=== PATIENT | female | born 1945 | race Caucasian/White ===

== ENCOUNTER 2016-12-01 20:27 | Observation (INO) | payer MEDICARE, OTHER ==
[~2016-12-01] VITALS: Ht 157.5 cm; Wt 91.2 kg
[~2016-12-01 20:27] MED LIST: AMLO5TAB2 PO; ASPI-9 PO; ASPI-999 PO; ATEN25TA PO; METF1000 PO; PRAV40TA PO; PRAV80TA PO; SITA1TAB2 PO; TRIA1TAB3 PO; estrogen PO
[2016-12-01] MEDS ORDERED: ASPIRIN 81 MG CHEW (CHILDREN'S ASA) PO ONE (20:30)
[2016-12-01] MEDS ORDERED: GLIM1TAB PO (20:43)
[2016-12-01] MEDS ORDERED: CARV3.12 PO (20:43)
[2016-12-01] MEDS ORDERED: RX-NITROGLYCERIN 0.4 MG TAB BTL 25'S SL ONE (20:45)
[2016-12-01 20:54] LABS: BASOPHILS # (AUTO) 0.1 10^3/uL (0.0-0.1); BASOPHILS % (AUTO) 1 % (0-10); EOSINOPHILS # (AUTO) 0.5 10^3/uL (0.0-0.3); EOSINOPHILS % (AUTO) 7 % (0-10); LYMPHOCYTES % (AUTO) 44 % (12-44); MEAN CORPUSCULAR HEMOGLOBIN 28 PG (25-34); MEAN CORPUSCULAR HGB CONC 34 G/DL (32-36); MEAN CORPUSCULAR VOLUME 82 FL (80-99); MEAN PLATELET VOLUME 11.6 FL (7.4-10.4); MONOCYTES # (AUTO) 0.5 X 10^3 (0.0-1.0); MONOCYTES % (AUTO) 8 % (0-12); NEUTROPHILS # (AUTO) 2.8 X 10^3 (1.8-7.8); NEUTROPHILS % (AUTO) 41 % (42-75); PLATELET COUNT 206 10^3/uL (130-400); RED BLOOD COUNT 4.99 10^6/uL (4.35-5.85); RED CELL DISTRIBUTION WIDTH 14.2 % (10.0-14.5); WHITE BLOOD COUNT 6.8 10^3/uL (4.3-11.0)
--- NOTE | 2016-12-01 20:59 | ED Chest Pain ---
General Chief Complaint: Cardiac/General Problems Stated Complaint: HIGH BP, L ARM PAIN Nursing Triage Note: to ER with and grandson with reports of hypertension and left arm pain that started this evening while sitting in her chair. Patient reports recent history of new blood pressure medication due to hypertension. Nursing Sepsis Screen: No Definite Risk Source: patient, family Exam Limitations: no limitations History of Present Illness Time seen by provider: 20:30 Initial Comments Here with report of left arm ache and blood pressure is uncontrolled. She's recently had uncontrolled blood pressure. This started about 630 p.m. tonight and has not resolved. Aside from the arm aching she has no other complaints. Denies nausea, vomiting, weakness, central chest pain or diaphoresis. Does have problems with blood pressure and is recently started a new medicine on for hypertension uncontrolled. Timing/Duration: 1-3 hours Severity/Quality: mild, moderate, aching Location: other (left arm) Radiation: no radiation Activities at Onset: none Prior CP/Workup: cardiac cath Modifying Factors: improves with rest ASA po STOCKBROKER: Yes (this morning) NTG SL STOCKBROKER: No Associated Symptoms: No abdominal pain, No back pain, No dizziness, No nausea/ vomiting, No shortness of breath, No weakness Allergies and Home Medications Allergies Coded Allergies: Sulfa (Sulfonamide Antibiotics) (Verified Allergy, Unknown, 06/08/16) Home Medications Amlodipine Besylate 5 Mg Tablet 5 MG PO DAILY (Reported) Aspirin/Calcium Carbonate/Mag 325 Mg Tablet #30 325 MG PO DAILY Prescribed by: ASCENCION GOODSON on 06/09/16 0846 Carvedilol 3.125 Mg Tablet Unknown Dose PO BID (Reported) Glimepiride 1 Mg Tablet Unknown Dose PO (Reported) Metformin HCl 1,000 Mg Tablet 1,000 MG PO BID (Reported) Pravastatin Sodium 80 Mg Tablet #30 80 MG PO DAILY Prescribed by: ASCENCION GOODSON on 06/09/16 0846 Triamterene/Hydrochlorothiazid 1 Each Tablet 1 EACH PO DAILY (Reported) Review of Systems Constitutional: see HPINo chills, No fever EENTM: No Symptoms Reported Respiratory: No Symptoms ReportedDenies SOA at Rest, Denies Wheezing Cardiovascular: See HPIDenies Lightheadedness, Denies Palpitations Gastrointestinal: No Symptoms ReportedDenies Nausea, Denies Vomiting Genitourinary: No Symptoms Reported Musculoskeletal: see HPINo back pain, muscle pain Skin: no symptoms reported Psychiatric/Neurological: No Symptoms Reported All Other Systems Reviewed Negative Unless Noted: Yes Past Fxrvvhs-Gctspz-Aavolt Hx Patient Social History Alcohol Use: Denies Use Recreational Drug Use: No Smoking Status: Never a Smoker 2nd Hand Smoke Exposure: No Recent Foreign Travel: No Contact w/Someone Who Travel: No Recent Infectious Disease Expo: No Recent Hopitalizations: No Immunizations Up To Date Tetanus Booster (TDap): Unknown Date of Pneumonia Vaccine: Jul 20, 2015 Date of Influenza Vaccine: Aug 08, 2016 Seasonal Allergies Seasonal Allergies: No Surgeries HX Surgeries: Yes (Stress test and Heart cath) Respiratory Hx Respiratory Disorders: Yes Respiratory Disorders: Asthma Cardiovascular Hx Cardiac Disorders: Yes (Heart Cath ("clean")) Cardiac Disorders: High Cholesterol, Hypertension Neurological Hx Neurological Disorders: No Reproductive System Hx Reproductive Disorders: No Genitourinary Hx Genitourinary Disorders: No Gastrointestinal Hx Gastrointestinal Disorders: No Musculoskeletal Hx Musculoskeletal Disorders: No Endocrine Hx Endocrine Disorders: Yes Endocrine Disorders: Diabetes, Non-Insulin dep HEENT HX ENT Disorders: No Cancer Hx Cancer: No Psychosocial Hx Psychiatric Problems: No Integumentary HX Skin/Integumentary Disorder: No Blood Transfusions Hx Blood Disorders: No Reviewed Nursing Assessment Reviewed/Agree w Nursing PMH: Yes Family Medical History Significant Family History: No Pertinent Family Hx Family Medial History: Cerebral hemorrhage 19 FATHER Diabetes mellitus 19 MOTHER FH: breast cancer 19 MOTHER FH: ovarian cancer 19 MOTHER Hypertension 19 FATHER 19 MOTHER Physical Exam Vital Signs Vital Sign - Last 12Hours 12/01/16 20:30 Temp 98.3 Pulse 56 Resp 18 B/P 227/93 Pulse Ox 96 O2 Delivery Room Air Capillary Refill : Less Than 3 Seconds General Appearance: No Apparent Distress WD/WN HEENT: PERRL/EOMI Pharynx Normal Neck: Non Tender Supple Respiratory: Lungs Clear Normal Breath Sounds Cardiovascular: Regular Rate, Rhythm No Murmur Gastrointestinal: Non Tender Soft Extremity: Non Tender No Calf Tenderness Neurologic/Psychiatric: Alert Oriented x3 Skin: Normal Color Warm/Dry Progress/Results/Core Measures Results/Orders Lab Results Laboratory Tests Test 12/01/16 20:46 12/01/16 21:00 Range/Units Activated Partial Thromboplast Time 29 24-35 SEC Alanine Aminotransferase (ALT/SGPT) 26 0-55 U/L Albumin 3.9 3.2-4.5 G/DL Alkaline Phosphatase 81 40-136 U/L Anion Gap 10 5-14 MMOL/L Aspartate Amino Transf (AST/SGOT) 18 5-34 U/L BUN/Creatinine Ratio 25 Basophils # (Auto) 0.1 0.0-0.1 10^3/uL Basophils (%) (Auto) 1 0-10 % Blood Urea Nitrogen 21 H 7-18 MG/DL Calcium Level 9.3 8.5-10.1 MG/DL Carbon Dioxide Level 28 21-32 MMOL/L Chloride Level 100 98-107 MMOL/L Creatinine 0.83 0.60-1.30 MG/DL D-Dimer < 0.27 0.00-0.49 UG/ML Eosinophils # (Auto) 0.5 H 0.0-0.3 10^3/uL Eosinophils (%) (Auto) 7 0-10 % Estimat Glomerular Filtration Rate > 60 Glucose Level 105 70-105 MG/DL Hematocrit 41 35-52 % Hemoglobin 13.9 11.5-16.0 G/DL INR Comment 1.0 0.8-1.4 Lymphocytes # (Auto) 3.0 1.0-4.0 X 10^3 Lymphocytes (%) (Auto) 44 12-44 % Magnesium Level 2.2 1.8-2.4 MG/DL Mean Corpuscular Hemoglobin 28 25-34 PG Mean Corpuscular Hemoglobin Concent 34 32-36 G/DL Mean Corpuscular Volume 82 80-99 FL Mean Platelet Volume 11.6 H 7.4-10.4 FL Monocytes # (Auto) 0.5 0.0-1.0 X 10^3 Monocytes (%) (Auto) 8 0-12 % Myoglobin 21.1 10.0-92.0 NG/ML Neutrophils # (Auto) 2.8 1.8-7.8 X 10^3 Neutrophils (%) (Auto) 41 L 42-75 % Platelet Count 206 130-400 10^3/uL Potassium Level 3.9 3.6-5.0 MMOL/L Prothrombin Time 12.5 12.2-14.7 SEC Red Blood Count 4.99 4.35-5.85 10^6/uL Red Cell Distribution Width 14.2 10.0-14.5 % Sodium Level 138 135-145 MMOL/L Total Bilirubin 0.3 0.1-1.0 MG/DL Total Protein 6.5 6.4-8.2 G/DL Troponin I < 0.30 <0.30 NG/ML White Blood Count 6.8 4.3-11.0 10^3/uL Urine Bacteria NEGATIVE /HPF Urine Bilirubin NEGATIVE NEGATIVE Urine Casts NONE /LPF Urine Clarity CLEAR Urine Color YELLOW Urine Crystals NONE /LPF Urine Culture Indicated NO Urine Glucose (UA) NEGATIVE NEGATIVE Urine Ketones NEGATIVE NEGATIVE Urine Leukocyte Esterase NEGATIVE NEGATIVE Urine Mucus NEGATIVE /LPF Urine Nitrite NEGATIVE NEGATIVE Urine Protein NEGATIVE NEGATIVE Urine RBC NONE /HPF Urine RBC (Auto) NEGATIVE NEGATIVE Urine Renal Epithelial Cells NONE /HPF Urine Specific [place] 1.005 L 1.016-1.022 Urine Squamous Epithelial Cells 10-25 H /HPF Urine Urobilinogen NORMAL NORMAL MG/DL Urine WBC RARE /HPF Urine pH 7 5-9 My Orders Orders-STACEY WILLIS MD Cbc With Automated Diff (12/01/16 20:29) Magnesium (12/01/16 20:29) Chest 1 View, Ap/Pa Only (12/01/16 20:29) Ekg Tracing (12/01/16 20:29) Cardiac Profile 1 (12/01/16 20:29) Comprehensive Metabolic Panel (12/01/16 20:29) Myoglobin Serum (12/01/16 20:29) Protime With Inr (12/01/16 20:29) Partial Thromboplastin Time (12/01/16 20:29) O2 (12/01/16 20:29) Monitor-Rhythm Ecg Trace Only (12/01/16 20:29) Lipid Panel (12/02/16 06:00) Aspirin Chewable Tablet (Baby Aspirin Ch (12/01/16 20:30) Saline Lock/Iv-Start (12/01/16 20:29) Rx-Nitroglycerin Sl Tabs (Rx-Nitrostat S (12/01/16 20:45) Fibrin Degradation Products (12/01/16 20:46) Ua Culture If Indicated (12/01/16 21:04) Carvedilol Tablet (Coreg Tablet) (12/01/16 22:00) Lisinopril Tablet (Zestril Tablet) (12/01/16 22:00) Medications Given in ED Current Medications Medications Dose Ordered Sig/[place] Route Start Time Stop Time Status Last Admin Dose Admin Aspirin 324 mg ONCE ONCE PO 12/01/16 20:30 12/01/16 20:31 DC 12/01/16 20:48 324 MG Carvedilol 6.25 mg ONCE ONCE PO 12/01/16 22:00 12/01/16 22:01 DC 12/01/16 22:07 6.25 MG Lisinopril 10 mg ONCE ONCE PO 12/01/16 22:00 12/01/16 22:01 DC 12/01/16 22:07 10 MG Nitroglycerin 0.4 mg UD ONCE SL 12/01/16 20:45 12/01/16 20:46 DC 12/01/16 20:48 0.4 MG Vital Signs/I&O Vital Sign - Last 12Hours 12/01/16 12/01/16 12/01/16 20:30 20:33 20:48 Temp 98.3 98.3 Pulse 56 Resp 18 B/P 227/93 Pulse Ox 96 95 O2 Delivery Room Air Room Air Blood Pressure Mean: 137 Progress Note : Progress Note Seen and evaluated. IV, labs, EKG and chest x-ray ordered. ASA 324 mg by mouth given. Nitroglycerin sublingual given. She did have complete resolution of her left arm pain with the nitroglycerin. Blood pressure dropped to 155/74. 2200: I discussed the case with Dr. Goodson as patient has had labile blood pressure and has had some return of left arm aching and pain concerning for chest pain variant. We will give carvedilol 6.125 mg by mouth and lisinopril 10 mg by mouth now and admit for observation. Chest pain order set done as well. This was discussed with patient and family who agree with plan. Admit, observation status. ECG Initial ECG Impression Date: Dec 01, 2016 Initial ECG Impression Time: 20:34 Initial ECG Rhythm: Normal Sinus Comment Left anterior fascicular block with left ventricular hypertrophy. Left axis deviation. All very similar to previous of 06/08/16. No evidence of ST elevation FL. Interpreted by me. Diagnostic Imaging Diagonstic Imaging: Xray Plain Films/CT/US/NM/MRI: chest Comments NAME: [facility] REC#: [id number] PT STATUS: REG ER : 1945 PHYSICIAN: STACEY WILLIS MD ADMIT DATE: 12/01/16/ER Signed Date of Exam: 12/01/16 CHEST 1 VIEW, AP/PA ONLY INDICATION: Hypertension, arm numbness. COMPARISON: 06/08/16. EXAMINATION: Single view of the chest was obtained. FINDINGS: Clear lungs, bilaterally. The heart is slightly prominent but stable. There is no pneumothorax. IMPRESSION: No acute cardiopulmonary findings. Dictated by: Dictated on workstation # [id number] Dict: 12/01/162100 Trans: 12/01/162122 [facility] [id number] Interpreted by: MAVIS ASTORGA Electronically signed by:MAVIS ASTORGA 12/01/162124 Departure Communication Time/Spoke to Admitting Phy: 21:38 Impression Impression: Primary Impression: Hypertensive urgency Additional Impression: Chest pain Qualified Code: R07.9 - Chest pain, unspecified Disposition: ADMITTED INPATIENT Condition: Stable Decision to Admit Reason: Admit from ER (General) Decision to Admit/Date: Dec 01, 2016 Time/Decision to Admit Time: 21:38 Departure-Patient Inst. Referrals: OSCAR PACK DO (PCP) Primary Care Physician STACEY WILLIS MD Dec 01, 2016 20:59
--- NOTE | 2016-12-01 21:04 | Diagnostic Imaging Report ---
INDICATION: Hypertension, arm numbness. COMPARISON: 06/08/16. EXAMINATION: Single view of the chest was obtained. FINDINGS: Clear lungs, bilaterally. The heart is slightly prominent but stable. There is no pneumothorax. IMPRESSION: No acute cardiopulmonary findings. Dictated by: Dictated on workstation # [id number]
[2016-12-01 21:06] LABS: PROTHROMBIN TIME PATIENT 12.5 SEC (12.2-14.7)
[2016-12-01 21:07] LABS: PARTIAL THROMBOPLASTIN TIME 29 SEC (24-35)
[2016-12-01 21:13] LABS: ALANINE AMINOTRANSFERASE 26 U/L (0-55); ALBUMIN 3.9 G/DL (3.2-4.5); ANION GAP 10 MMOL/L (5-14); ASPARTATE AMINO TRANSFERASE 18 U/L (5-34); BILIRUBIN,TOTAL 0.3 MG/DL (0.1-1.0); BLOOD UREA NITROGEN 21 MG/DL (7-18); BUN/CREATININE RATIO 25; CALCIUM 9.3 MG/DL (8.5-10.1); CARBON DIOXIDE 28 MMOL/L (21-32); CHLORIDE 100 MMOL/L (98-107); CREATININE SERUM 0.83 MG/DL (0.60-1.30); GFR ESTIMATED > 60; GLUCOSE 105 MG/DL (70-105); MAGNESIUM 2.2 MG/DL (1.8-2.4); POTASSIUM 3.9 MMOL/L (3.6-5.0); SODIUM 138 MMOL/L (135-145); TOTAL PROTEIN 6.5 G/DL (6.4-8.2)
[2016-12-01 21:14] LABS: BILIRUBIN,URINE NEGATIVE (NEGATIVE); KETONES,URINE NEGATIVE (NEGATIVE); LEUKOCYTE ESTERASE ,URINE NEGATIVE (NEGATIVE); NITRITE,URINE NEGATIVE (NEGATIVE); PH,URINE 7 (5-9); PROTEIN,URINE NEGATIVE (NEGATIVE); UROBILINOGEN,URINE NORMAL (NORMAL)
[2016-12-01 21:20] LABS: MYOGLOBIN SERUM 21.1 NG/ML (10.0-92.0)
[2016-12-01 21:31] LABS: WBC,URINE RARE /HPF
[2016-12-01] MEDS ORDERED: CARVEDILOL 6.25 MG (COREG) TAB PO ONE (22:00)
[2016-12-01] MEDS ORDERED: lisINopril 10 MG (PRINIVIL) TAB PO ONE (22:00)
[2016-12-01] MEDS ORDERED: NS IV 1000 ML 1,000 ML ONE (22:55)
[2016-12-01 23:00] VITALS: BP 130/60
[2016-12-01 23:15] VITALS: BP 105/57
[2016-12-02] VITALS (8 sets, daily range): BP systolic 78–149; BP diastolic 48–66
[2016-12-02] MEDS ORDERED: NS IV 1000 ML 1,000 ML IV SCH (00:45)
[2016-12-02] MEDS ORDERED: morphine INJ 4 MG/ML 1 ML (VIAL/SYRINGE) IV PRN (00:45)
[2016-12-02] MEDS ORDERED: NITROGLYCERIN SUBLINGUAL 0.4 MG TAB (NITROSTAT) SL PRN (00:45)
[2016-12-02 04:24] LABS: BASOPHILS % (AUTO) 1 % (0-10); EOSINOPHILS # (AUTO) 0.5 10^3/uL (0.0-0.3); EOSINOPHILS % (AUTO) 7 % (0-10); LYMPHOCYTES # (AUTO) 2.6 X 10^3 (1.0-4.0); LYMPHOCYTES % (AUTO) 39 % (12-44); MEAN CORPUSCULAR HEMOGLOBIN 28 PG (25-34); MEAN CORPUSCULAR HGB CONC 34 G/DL (32-36); MEAN CORPUSCULAR VOLUME 82 FL (80-99); MEAN PLATELET VOLUME 11.8 FL (7.4-10.4); MONOCYTES # (AUTO) 0.5 X 10^3 (0.0-1.0); MONOCYTES % (AUTO) 7 % (0-12); NEUTROPHILS # (AUTO) 3.2 X 10^3 (1.8-7.8); NEUTROPHILS % (AUTO) 47 % (42-75); PLATELET COUNT 175 10^3/uL (130-400); RED BLOOD COUNT 4.53 10^6/uL (4.35-5.85); RED CELL DISTRIBUTION WIDTH 14.1 % (10.0-14.5); WHITE BLOOD COUNT 6.8 10^3/uL (4.3-11.0)
[2016-12-02 04:49] LABS: ALANINE AMINOTRANSFERASE 21 U/L (0-55); ALBUMIN 3.4 G/DL (3.2-4.5); ANION GAP 9 MMOL/L (5-14); ASPARTATE AMINO TRANSFERASE 16 U/L (5-34); BILIRUBIN,TOTAL 0.4 MG/DL (0.1-1.0); BLOOD UREA NITROGEN 19 MG/DL (7-18); BUN/CREATININE RATIO 26; CALCIUM 8.8 MG/DL (8.5-10.1); CARBON DIOXIDE 26 MMOL/L (21-32); CHLORIDE 104 MMOL/L (98-107); CREATININE SERUM 0.74 MG/DL (0.60-1.30); GFR ESTIMATED > 60; GLUCOSE 115 MG/DL (70-105); POTASSIUM 3.3 MMOL/L (3.6-5.0); SODIUM 139 MMOL/L (135-145); TOTAL PROTEIN 5.6 G/DL (6.4-8.2)
[2016-12-02 04:50] LABS: CHOLESTEROL 160 MG/DL (< 200); DIRECT LDL 111 MG/DL (1-129); TRIGLYCERIDES 95 MG/DL (<150); VLDL CHOLESTEROL 19 MG/DL (5-40)
[2016-12-02] MEDS ORDERED: CATHETER FLUSH 10 ML SYR IV PRN (08:45)
[2016-12-02] MEDS ORDERED: CARVEDILOL 6.25 MG (COREG) TAB PO SCH ×3 (09:00→21:00)
[2016-12-02] MEDS ORDERED: lisINopril 10 MG (PRINIVIL) TAB PO SCH (09:00)
[2016-12-02] MEDS ORDERED: ASPIRIN E.C. 325 MG (ECOTRIN) TABLET PO SCH (09:00)
[2016-12-02] MEDS ORDERED: PRAV40TA2 PO (09:47)
[2016-12-02] MEDS ORDERED: AMLO10TA2 PO (09:47)
[2016-12-02] MEDS ORDERED: CARV6.252 PO (09:47)
[2016-12-02] MEDS ORDERED: ASPI325T32 PO (09:47)
[2016-12-02] MEDS ORDERED: RT-ALBUINH INH (09:47)
[2016-12-02] MEDS ORDERED: FLUT9.9S NS (09:47)
[2016-12-02] MEDS ORDERED: TRIA1CAP4 PO (09:47)
--- NOTE | 2016-12-02 12:19 | History & Physical-Hospitalist ---
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 She was admitted last evening after she presented to the emergency room with a chief complaint of severe hypertension. She is a patient of Dr. Uziel Judge. She has had hypertension for some time. This seems to have been accelerated some point recently. She was given a dose of lisinopril in the emergency room last night because of hypertension. The confusion has been cleared this morning and it appears that she had not been taking her Norvasc. This has been reconciled. She now confesses that she also had a pain in her left arm on presentation to the emergency room and has been having that off and on at home combined with a pressure sensation across her anterior chest. There is a strong family history of hypertension and diabetes. Her father at age 52 of a stroke. The arm pain and chest pressure have not seemed to be related to exercise or eating. Source: patient, family Exam Limitations: no limitations Date Seen 12/02/16 Attending Physician Phoenix Goodson MD PCP Uziel Judge DO Referring Physician Date of Admission Dec 01, 2016 at 22:00 Home Medications & Allergies Home Medications Reviewed patient Home Medication Reconciliation Form Allergies Coded Allergies: Sulfa (Sulfonamide Antibiotics) (Verified Allergy, Unknown, 06/08/16) Past Rwhzkwb-Mjhzeb-Ltuqdi Hx Patient Social History Alcohol Use: Denies Use Recreational Drug Use: No Smoking Status: Never a Smoker 2nd Hand Smoke Exposure: No Physical Abuse Screen: No Sexual Abuse: No Recent Foreign Travel: No Contact w/other who traveled: No Recent Hopitalizations: No Recent Infectious Disease Expo: No Immunizations Up To Date Tetanus Booster (TDap): Unknown Date of Pneumonia Vaccine: Jul 20, 2015 Date of Influenza Vaccine: Aug 08, 2016 Seasonal Allergies Seasonal Allergies: No Surgeries HX Surgeries: Yes (Stress test and Heart cath) Respiratory Hx Respiratory Disorders: Yes Cardiovascular Hx Cardiovascular Disorders: Yes (Heart Cath ("clean")) Cardiac Disorders: High Cholesterol, Hypertension Neurological Hx Neurological Disorders: No Reproductive System Hx Reproductive Disorders: No Genitourinary Hx Genitourinary Disorders: No Gastrointestinal Hx Gastrointestinal Disorders: No Musculoskeletal Hx Musculoskeletal Disorders: No Endocrine Hx Endocrine Disorders: Yes Endocrine Disorders: Diabetes, Non-Insulin dep HEENT HX ENT Disorders: No Cancer Hx Cancer: No Psychosocial Hx Psychiatric Problems: No Integumentary HX Skin/Integumentary Disorder: No Blood Transfusions Hx Blood Disorders: No Reviewed Nursing Assessment Reviewed/Agree w Nursing PMH: Yes Family Medical History Significant Family History: No Pertinent Family Hx Family Hx: Cerebral hemorrhage 19 FATHER Diabetes mellitus 19 MOTHER FH: breast cancer 19 MOTHER FH: ovarian cancer 19 MOTHER Hypertension 19 FATHER 19 MOTHER Review of Systems Constitutional: see HPI EENTM: no symptoms reported Respiratory: no symptoms reported Cardiovascular: no symptoms reported chest pain Gastrointestinal: no symptoms reported Genitourinary: no symptoms reported : No Musculoskeletal: no symptoms reported Skin: no symptoms reported Psychiatric/Neurological: No Symptoms Reported Physical Exam Physical Exam Vital Signs Vital Sign - Last 12Hours 12/01/16 20:30 Temp 98.3 Pulse 56 Resp 18 B/P 227/93 Pulse Ox 96 O2 Delivery Room Air Capillary Refill : Less Than 3 Seconds General Appearance: Other (pleasant and alert and appears stated age) Eyes: Bilateral Eye Normal Inspection HEENT: Normal ENT Inspection Neck: Normal Inspection Respiratory: Chest Non Tender Lungs Clear Normal Breath Sounds No Accessory Muscle Use No Respiratory Distress Cardiovascular: Regular Rate, Rhythm No Edema No Gallop No JVD No Murmur Normal Peripheral Pulses Gastrointestinal: Normal Bowel Sounds No Organomegaly No Pulsatile Mass Non Tender Soft Back: Normal Inspection No CVA Tenderness No Vertebral Tenderness Extremity: Normal Capillary Refill Normal Inspection Normal Range of Motion Non Tender No Calf Tenderness No Pedal Edema Neurologic/Psychiatric: Alert Oriented x3 No Motor/Sensory Deficits Normal Mood/Affect Skin: Normal Color Lymphatic: No Adenopathy Results Results/Procedures Lab Laboratory Tests 12/01/16 20:46 12/02/16 04:12 Assessment/Plan Admission Diagnosis 1.accelerated hypertension. 2.chest pressure and left arm pain suggesting angina. 3.diabetes mellitus type II on oral agents. Assessment and Plan 1.reestablish medication program. 2.cardiology/Dr. Ruiz consultation Clinical Quality Measures AMI/AHF: ASA po Prior to arrival: Yes (this morning) DVT/VTE Risk/Contraindication: Risk Factor Score Per Nursin RFS Level Per Nursing on Admit: 3=High KELBY GRUBER MD Dec 02, 2016 12:19
--- NOTE | 2016-12-02 12:43 | Consultation-Cardiology ---
HPI-Cardiology Cardiology Consultation Date of Consultation 12/02/16 Date of Admission Indication: Chest pain HPI 71 years old lady with history of CVA, hypertension and diabetes. patient was admitted yesterday with hypertensive emergency, she was having some chest discomfort described it as dull in nature in the left side of her chest not radiating, no shortness of breath, no palpitation, syncope or near syncopal episode reported occasionally noticing irregular heartbeat on her blood pressure monitor. She reported that she forgot to take Norvasc for the last few weeks. She has been otherwise compliant with her medications. Home Medications & Allergies Allergies: Coded Allergies: Sulfa (Sulfonamide Antibiotics) (Verified Allergy, Unknown, 06/08/16) Home Medication List Reviewed: Yes TXN-Trcmpf-Zgvabi Hx Patient Social History Marital Status: Alcohol Use: Denies Use Recreational Drug Use: No Smoking Status: Never a Smoker 2nd Hand Smoke Exposure: No Recent Foreign Travel: No Recent Infectious Disease Expo: No Recent Hopitalizations: No Physical Abuse Screen: No Sexual Abuse: No Immunizations Up To Date Tetanus Booster (TDap): Unknown Date of Pneumonia Vaccine: Jul 20, 2015 Date of Influenza Vaccine: Aug 08, 2016 Past Medical History past medical history as discussed below Family Medical History Significant Family History: No Pertinent Family Hx Family History: 19 FATHER Hypertension Cerebral hemorrhage 19 MOTHER Diabetes mellitus Hypertension FH: breast cancer FH: ovarian cancer Constitutional: no symptoms reported see HPI EENTM: no symptoms reported see HPI Respiratory: no symptoms reported see HPI Cardiovascular: see HPI chest painNo edema, No Hx of Intervention, No palpitations, No syncope, No vascular heart diseas, No other Gastrointestinal: no symptoms reported see HPI Genitourinary: see HPI decreased output Musculoskeletal: no symptoms reported see HPI Skin: no symptoms reported see HPI Psychiatric/Neurological: No Symptoms Reported See HPI Reviewed Test Results Reviewed Test Results Lab Laboratory Tests Test 12/01/16 20:46 12/01/16 21:00 12/02/16 02:15 12/02/16 04:12 Range/Units Activated Partial Thromboplast Time 29 24-35 SEC Alanine Aminotransferase (ALT/SGPT) 26 21 0-55 U/L Albumin 3.9 3.4 3.2-4.5 G/DL Alkaline Phosphatase 81 67 40-136 U/L Anion Gap 10 9 5-14 MMOL/L Aspartate Amino Transf (AST/SGOT) 18 16 5-34 U/L BUN/Creatinine Ratio 25 26 Basophils # (Auto) 0.1 0.0 0.0-0.1 10^3/uL Basophils (%) (Auto) 1 1 0-10 % Blood Urea Nitrogen 21 H 19 H 7-18 MG/DL Calcium Level 9.3 8.8 8.5-10.1 MG/DL Carbon Dioxide Level 28 26 21-32 MMOL/L Chloride Level 100 104 98-107 MMOL/L Creatinine 0.83 0.74 0.60-1.30 MG/DL D-Dimer < 0.27 0.00-0.49 UG/ML Eosinophils # (Auto) 0.5 H 0.5 H 0.0-0.3 10^3/uL Eosinophils (%) (Auto) 7 7 0-10 % Estimat Glomerular Filtration Rate > 60 > 60 Glucose Level 105 115 H 70-105 MG/DL Hematocrit 41 37 35-52 % Hemoglobin 13.9 12.5 11.5-16.0 G/DL INR Comment 1.0 0.8-1.4 Lymphocytes # (Auto) 3.0 2.6 1.0-4.0 X 10^3 Lymphocytes (%) (Auto) 44 39 12-44 % Magnesium Level 2.2 1.8-2.4 MG/DL Mean Corpuscular Hemoglobin 28 28 25-34 PG Mean Corpuscular Hemoglobin Concent 34 34 32-36 G/DL Mean Corpuscular Volume 82 82 80-99 FL Mean Platelet Volume 11.6 H 11.8 H 7.4-10.4 FL Monocytes # (Auto) 0.5 0.5 0.0-1.0 X 10^3 Monocytes (%) (Auto) 8 7 0-12 % Myoglobin 21.1 10.0-92.0 NG/ML Neutrophils # (Auto) 2.8 3.2 1.8-7.8 X 10^3 Neutrophils (%) (Auto) 41 L 47 42-75 % Platelet Count 206 175 130-400 10^3/uL Potassium Level 3.9 3.3 L 3.6-5.0 MMOL/L Prothrombin Time 12.5 12.2-14.7 SEC Red Blood Count 4.99 4.53 4.35-5.85 10^6/uL Red Cell Distribution Width 14.2 14.1 10.0-14.5 % Sodium Level 138 139 135-145 MMOL/L Total Bilirubin 0.3 0.4 0.1-1.0 MG/DL Total Protein 6.5 5.6 L 6.4-8.2 G/DL Troponin I < 0.30 < 0.30 <0.30 NG/ML White Blood Count 6.8 6.8 4.3-11.0 10^3/uL Urine Bacteria NEGATIVE /HPF Urine Bilirubin NEGATIVE NEGATIVE Urine Casts NONE /LPF Urine Clarity CLEAR Urine Color YELLOW Urine Crystals NONE /LPF Urine Culture Indicated NO Urine Glucose (UA) NEGATIVE NEGATIVE Urine Ketones NEGATIVE NEGATIVE Urine Leukocyte Esterase NEGATIVE NEGATIVE Urine Mucus NEGATIVE /LPF Urine Nitrite NEGATIVE NEGATIVE Urine Protein NEGATIVE NEGATIVE Urine RBC NONE /HPF Urine RBC (Auto) NEGATIVE NEGATIVE Urine Renal Epithelial Cells NONE /HPF Urine Specific [place] 1.005 L 1.016-1.022 Urine Squamous Epithelial Cells 10-25 H /HPF Urine Urobilinogen NORMAL NORMAL MG/DL Urine WBC RARE /HPF Urine pH 7 5-9 Cholesterol Level 160 < 200 MG/DL HDL Cholesterol 40 40-60 MG/DL LDL Cholesterol Direct 111 1-129 MG/DL Triglycerides Level 95 <150 MG/DL VLDL Cholesterol 19 5-40 MG/DL Physical Exam Vital Signs Vital Sign - Last 12Hours 12/01/16 20:30 Temp 98.3 Pulse 56 Resp 18 B/P 227/93 Pulse Ox 96 O2 Delivery Room Air Capillary Refill : Less Than 3 Seconds General Appearance: No Apparent Distress WD/WN Eyes: Bilateral Eye EOMI, Bilateral Eye Normal Inspection, Bilateral Eye PERRL HEENT: PERRL/EOMI TMs Normal Normal ENT Inspection Pharynx Normal Neck: Full Range of Motion Normal Inspection Non Tender Supple Carotid Bruit Respiratory: Chest Non Tender Lungs Clear Normal Breath Sounds No Accessory Muscle Use No Respiratory Distress Cardiovascular: Regular Rate, Rhythm No Edema No Gallop No JVD No Murmur Normal Peripheral Pulses Gastrointestinal: Normal Bowel Sounds No Organomegaly No Pulsatile Mass Non Tender Soft Back: Normal Inspection No CVA Tenderness No Vertebral Tenderness Extremity: Normal Capillary Refill Normal Inspection Normal Range of Motion Non Tender No Calf Tenderness No Pedal Edema Neurologic/Psychiatric: Alert Oriented x3 No Motor/Sensory Deficits Normal Mood/Affect Skin: Normal Color Warm/Dry Lymphatic: No Adenopathy A/P-Cardiology Admission Diagnosis Chest pain nonspecific etiology Hypertensive emergency Hyperlipidemia Sick sinus syndrome Assessment/Plan Chest pain nonspecific etiology, atypical in presentation, multiple risk factors for coronary artery disease, EKG did not show any acute abnormality, cardiac enzymes are normal, currently chest pain-free, I discussed with her the management plan recommended stress test and it can be done as an outpatient. Multiple risk factors for coronary artery disease, had a stress test done in 2010 and reported as mild anterior wall ischemia probably secondary to breast attenuation. No further workup was done at that time. Hypertensive emergency. Patient was restarted on the Norvasc, has not been taken it as an outpatient, was on Coreg 3.125 twice daily which continued, added lisinopril 10 mg daily. Continue on current medication and monitor. Sick sinus syndrome, Baseline bradycardia with a heart rate in the 40s, probably exacerbated by the low-dose beta blockers. Patient is asymptomatic, I will continue on current dose and monitor closely. Hyperlipidemia, maintained on pravastatin. Continue to monitor History of CVA with slurred speech and left arm numbness, fully recovered, occurred in May 2016, carotid ultrasound showed mild disease Mild bilateral carotid stenosis nonobstructive disease, carotid ultrasound was done during her hospital stay in May 2016 Diabetes mellitus, followed and managed by primary care physician Patient reporting having sleep study done did not show underlying sleep apnea Obesity, BMI is 36, discussed weight loss and exercise Clinical Quality Measures AMI/AHF: ASA po Prior to arrival: Yes (this morning) DVT/VTE Risk/Contraindication: Risk Factor Score Per Nursin RFS Level Per Nursing on Admit: 3=High ANT FIELD MD Dec 02, 2016 12:43
[2016-12-02] MEDS ORDERED: LISI10TA2 PO (12:48)
--- NOTE | 2016-12-02 12:56 | Discharge Inst-Simple/Standard ---
Discharge Inst-Standard Patient Instructions/Follow Up Plan of Care/Instructions/FU: Medications as listed on the instruction sheet. This includes your present medications and at Dr. Ruiz's request lisinopril. Keep appointment as scheduled for Dr. Ruiz. Activity as Tolerated: Yes Goal: Improvement in blood pressure management Outpatient evaluation of cardiac status Discharge Diet: ADA Diet Return to The Hospital For: Recurrent chest pain KELBY GRUBER MD Dec 02, 2016 12:56
[2016-12-03] MEDS ORDERED: GLIMEPIRIDE 1 MG (AMARYL) TAB PO SCH ×2 (07:00)
[2016-12-03] MEDS ORDERED: amLODIPine 10 MG (NORVASC) TAB PO SCH (09:00)
[2016-12-03] MEDS ORDERED: ASPIRIN E.C. 325 MG (ECOTRIN) TABLET PO SCH ×2 (09:00)
--- NOTE | 2016-12-18 12:12 | Physician Query-Final Dx ---
KATHY SULTANA 12/18/16 1211: Final Diagnosis Give Final Diagnosis Please give Final Diagnosis KELBY GRUBER MD 12/25/16 1401: Final Diagnosis Give Final Diagnosis 1.accelerated hypertension. 2.chest pain suggesting angina pectoris. 3.diabetes mellitus type II on oral medications KATHY SULTANA Dec 18, 2016 12:11 KELBY GRUBER MD Dec 25, 2016 14:01
== END 2016-12-02 12:54 | disposition home or self-care (01) ==
LOC: EDUNIT# 20:27 → ER 20:28 → UNDOADMOB 22:00 → ICU 22:00 → UNDODISOB 12-02 14:10
PROVIDERS: ADMIT Internal Medicine; ATTEND Internal Medicine
DX: R07.89 Other chest pain (principal); I25.10 Atherosclerotic heart disease of native coronary artery without angina pectoris; I16.1 Hypertensive emergency; I10 Essential (primary) hypertension; I49.5 Sick sinus syndrome; E78.5 Hyperlipidemia, unspecified; I65.23 Occlusion and stenosis of bilateral carotid arteries; E11.9 Type 2 diabetes mellitus without complications; Z79.84 Long term (current) use of oral hypoglycemic drugs; E66.9 Obesity, unspecified; Z68.36 Body mass index [BMI] 36.0-36.9, adult
CPT/HCPCS: 36415; 71010; 80053; 80061; 81000; 83735; 83874; 84484; 85025; 85379; 85610; 85730; 93005; 93041; G0378

== ENCOUNTER → 2016-12-04 | Outpatient (CLI) | payer MEDICARE, OTHER ==
[~2016-12-04] VITALS: Ht 157.5 cm; Wt 90.7 kg
[~2016-12-04] MED LIST changes: +AMLO10TA2 PO; +ASPI325T32 PO; +CARV3.12 PO; +CARV6.252 PO; +CATHETER FLUSH 10 ML SYR IV PRN; +FLUT9.9S NS; +GLIM1TAB PO; +LIDOCAINE 1% INJ 20 ML (XYLOCAINE) VIAL ONE; +LISI10TA2 PO; +PRAV40TA2 PO; +REGADENOSON 0.4 MG/5 ML SYR (LEXISCAN) IV ONE; +RT-ALBUINH INH; +TRIA1CAP4 PO
[2016-12-04 13:32] VITALS: BP 150/98
[2016-12-04 13:38] VITALS: BP 125/96
--- NOTE | 2016-12-05 08:22 | STRESS TEST ---
PROCEDURE PHYSICIAN: ANT FIELD DATE OF PROCEDURE: 12/04/2016 LEXISCAN MYOVIEW STRESS TEST REPORT: REFERRING PHYSICIAN: Dr. Uziel Judge. INDICATION FOR THE PROCEDURE: Chest pain. BASELINE HEART RATE: 51 BASELINE BLOOD PRESSURE: 93/59 BASELINE EKG: Sinus rhythm with no ischemic changes. IN SUMMARY: The patient was injected with 10.02 mCi of technetium 99 Myoview and the resting images were obtained. Then the patient received 0.4 mg of Lexiscan followed by 32.8 mCi of technetium 99 Myoview. Throughout the test, there were no EKG changes. The resting and stress images were reviewed and compared in the short axis, horizontal long axis, and vertical long axis views. Review of the images showed breast attenuation with typical female pattern. No significant ischemia or infarction on SPECT images. SSS is 3, SDS 3, TID value 1. On the gated images, the left ventricle appeared to be normal size with normal contractility. Calculated ejection fraction 65%. IN CONCLUSION: 1. The patient tolerated Lexiscan well. 2. Breast attenuation with typical female pattern. No significant ischemia or infarction on SPECT images. 3. Normal left ventricular size with normal contractility. Calculated ejection fraction 65%. Job ID: [id number] Dictated Date: 12/04/2016 18:31:32 Immunopathologist Date: 12/05/2016 08:19:27 / kyle
== END ==
LOC: CARD 12:29
PROVIDERS: ATTEND Internal Medicine Cardiovascular Disease
DX: R07.89 Other chest pain (principal); I10 Essential (primary) hypertension; I63.9 Cerebral infarction, unspecified; R00.1 Bradycardia, unspecified
CPT/HCPCS: 78452; 93017

== ENCOUNTER → 2016-12-18 | Day surgery (SDC) | payer MEDICARE, OTHER ==
[~2016-12-18] VITALS: Ht 157.5 cm; Wt 90.7 kg
[~2016-12-18] MED LIST changes: -CATHETER FLUSH 10 ML SYR IV PRN; -LIDOCAINE 1% INJ 20 ML (XYLOCAINE) VIAL ONE; -REGADENOSON 0.4 MG/5 ML SYR (LEXISCAN) IV ONE
--- OUTSIDE RECORDS SUMMARY | 2016-12-18 08:39 | XMS REPORT | Continuity of Care Document ---
Demographics Preferred Language Unknown Marital Status Unknown Yazdanism Affiliation Unknown Race Unknown Ethnic Group Unknown Author Author [facility] Address Unknown Phone Unavailable Allergies Active Description Code Type Severity Reaction Onset Reported/Identified Relationship to Patient Clinical Status Yes No Known Drug Allergies [id number] Drug Allergy Unknown N/ A 06/08/2016 Yes Sulfa (Sulfonamide Antibiotics) [id number] Drug Allergy Unknown N/A 06/08/2016 Medications Problems Date Dx Coded Attending Type Code Diagnosis Diagnosed By 09/18/1042 OSCAR PACK DO Ot I69.918 OTHER SYMP AND SIGNS W COGN FNCTNS FOL U 04/16/2011 Ot 250.00 DIAB MADISYN WO COMPL, TYPE II OR UNSPEC TY 04/16/2011 Ot 272.4 HYPERLIPIDEMIA NEC/NOS 04/16/2011 Ot 278.00 OBESITY, NOS 04/16/2011 Ot 401.9 HYPERTENSION NOS 04/16/2011 Ot 786.50 CHEST PAIN NOS 04/16/2011 Ot 794.30 ABN CARDIOVASC STUDY NOS 04/16/2011 Ot V17.49 FAMILY HISTORY OF OTHER CARDIOVASCULAR D 04/16/2011 Ot V45.77 ACQRD ABSENCE OF GENITAL ORGANS 04/16/2011 Ot V58.69 OTH MED,LT,CURRENT USE 05/04/2015 Ot 250.00 05/04/2015 Ot 272.4 05/04/2015 Ot 401.9 05/04/2015 Ot 786.50 05/04/2015 Ot 721.3 05/25/2015 OSCAR PACK DO Ot 424.1 06/16/2015 OSCAR PACK DO Ot 424.1 04/26/2016 OSCAR PACK DO Ot Z12.31 ENCNTR SCREEN MAMMOGRAM FOR MALIGNANT NE 04/26/2016 OSCAR PACK DO Ot Z78.0 ASYMPTOMATIC MENOPAUSAL STATE 04/29/2016 OSCAR PACK DO Ot Z12.31 ENCNTR SCREEN MAMMOGRAM FOR MALIGNANT NE 04/29/2016 OSCAR PACK DO Ot Z78.0 ASYMPTOMATIC MENOPAUSAL STATE 05/30/2016 OSCAR PACK DO Ot Z12.31 ENCNTR SCREEN MAMMOGRAM FOR MALIGNANT NE 05/30/2016 OSCAR PACK DO Ot Z78.0 ASYMPTOMATIC MENOPAUSAL STATE 06/08/2016 Ot 250.00 DIAB MADISYN WO COMPL, TYPE II OR UNSPEC TY 06/08/2016 Ot 272.4 HYPERLIPIDEMIA NEC/NOS 06/08/2016 Ot 401.9 HYPERTENSION NOS 06/08/2016 Ot 786.50 CHEST PAIN NOS 06/08/2016 Ot 721.3 LUMBOSACRAL SPONDYLOSIS 06/08/2016 OSCAR PACK DO Ot 424.1 AORTIC VALVE DISORDER 06/08/2016 OSCAR PACK DO Ot Z12.31 ENCNTR SCREEN MAMMOGRAM FOR MALIGNANT NE 06/08/2016 OSCAR PACK DO Ot Z78.0 ASYMPTOMATIC MENOPAUSAL STATE 06/09/2016 KAYA MCCORD, ASCENCION Martinez Ot E11.9 TYPE 2 DIABETES MELLITUS WITHOUT COMPLIC 06/09/2016 KAYA MCCORD, ASCENCION Martinez Ot E78.5 HYPERLIPIDEMIA, UNSPECIFIED 06/09/2016 KAYA MCCORD, ASCENCION Martinez Ot I10 ESSENTIAL (PRIMARY) HYPERTENSION 06/09/2016 KAYA MCCORD, ASCENCION Martinez Ot I63.9 CEREBRAL INFARCTION, UNSPECIFIED 06/09/2016 KAYA MCCORD, ASCENCION Martinez Ot M62.81 MUSCLE WEAKNESS (GENERALIZED) 06/09/2016 KAYA MCCORD, ASCENCION Martinez Ot R20.2 PARESTHESIA OF SKIN 06/09/2016 ASCENCION KIRKPATRICK MD Ot R27.0 ATAXIA, UNSPECIFIED 06/09/2016 ASCENCION KIRKPATRICK MD Ot R29.810 FACIAL WEAKNESS 06/09/2016 KAYA MCCORD, ASCENCION Martinez Ot 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 06/13/2016 Ot 250.00 DIAB MADISYN WO COMPL, TYPE II OR UNSPEC TY 06/13/2016 Ot 272.4 HYPERLIPIDEMIA NEC/NOS 06/13/2016 Ot 401.9 HYPERTENSION NOS 06/13/2016 Ot 786.50 CHEST PAIN NOS 06/13/2016 Ot 721.3 LUMBOSACRAL SPONDYLOSIS 06/13/2016 OSCAR PACK DO Ot 424.1 AORTIC VALVE DISORDER 06/13/2016 OSCAR APCK DO Ot Z12.31 ENCNTR SCREEN MAMMOGRAM FOR MALIGNANT NE 06/13/2016 OSCAR PACK DO Ot Z78.0 ASYMPTOMATIC MENOPAUSAL STATE 07/11/2016 OSCAR PACK DO Ot Z09 ENCNTR FOR F/U EXAM AFT TRTMT FOR COND O 07/11/2016 OSCAR PACK DO Ot Z86.73 PRSNL HX OF TIA (TIA), AND CEREB INFRC W 07/19/2016 OSCAR PACK DO Ot Z09 ENCNTR FOR F/U EXAM AFT TRTMT FOR COND O 07/19/2016 OSCAR PACK DO Ot Z86.73 PRSNL HX OF TIA (TIA), AND CEREB INFRC W 08/19/2016 Ot 250.00 DIAB MADISYN WO COMPL, TYPE II OR UNSPEC TY 08/19/2016 Ot 272.4 HYPERLIPIDEMIA NEC/NOS 08/19/2016 Ot 401.9 HYPERTENSION NOS 08/19/2016 Ot 786.50 CHEST PAIN NOS 08/19/2016 Ot 721.3 LUMBOSACRAL SPONDYLOSIS 08/19/2016 OSCAR PACK DO Ot 424.1 AORTIC VALVE DISORDER 08/19/2016 OSCAR PACK DO Ot Z12.31 ENCNTR SCREEN MAMMOGRAM FOR MALIGNANT NE 08/19/2016 OSCAR PACK DO Ot Z78.0 ASYMPTOMATIC MENOPAUSAL STATE 08/19/2016 OSCAR PACK DO Ot I69.918 OTHER SYMP AND SIGNS W COGN FNCTNS FOL U 08/29/2016 OSCAR PACK DO Ot I69.918 OTHER SYMP AND SIGNS W COGN FNCTNS FOL U 09/02/2016 Ot 250.00 DIAB MADISYN WO COMPL, TYPE II OR UNSPEC TY 09/02/2016 Ot 272.4 HYPERLIPIDEMIA NEC/NOS 09/02/2016 Ot 401.9 HYPERTENSION NOS 09/02/2016 Ot 786.50 CHEST PAIN NOS 09/02/2016 Ot 721.3 LUMBOSACRAL SPONDYLOSIS 09/02/2016 OSCAR PACK DO Ot 424.1 AORTIC VALVE DISORDER 09/02/2016 OSCAR PACK DO Ot Z12.31 ENCNTR SCREEN MAMMOGRAM FOR MALIGNANT NE 09/02/2016 OSCAR PACK DO Ot Z78.0 ASYMPTOMATIC MENOPAUSAL STATE 10/30/2016 Ot 721.3 LUMBOSACRAL SPONDYLOSIS 10/30/2016 OSCAR PACK DO Ot 424.1 AORTIC VALVE DISORDER 10/30/2016 OSCAR PACK DO Ot Z12.31 ENCNTR SCREEN MAMMOGRAM FOR MALIGNANT NE 10/30/2016 OSCAR PACK DO Ot Z78.0 ASYMPTOMATIC MENOPAUSAL STATE 12/01/2016 Ot 721.3 LUMBOSACRAL SPONDYLOSIS 12/01/2016 OSCAR PACK DO Ot 424.1 AORTIC VALVE DISORDER 12/01/2016 OSCAR PACK DO Ot Z12.31 ENCNTR SCREEN MAMMOGRAM FOR MALIGNANT NE 12/01/2016 OSCAR PACK DO Ot Z78.0 ASYMPTOMATIC MENOPAUSAL STATE 12/02/2016 KAYA MCCORD, ASCENCION Martinez Ot E11.9 TYPE 2 DIABETES MELLITUS WITHOUT COMPLIC 12/02/2016 KAYA MCCORD, ASCENCION Martinez Ot E66.9 OBESITY, UNSPECIFIED 12/02/2016 ASCENCION KIRKPATRICK MD Ot E78.5 HYPERLIPIDEMIA, UNSPECIFIED 12/02/2016 ASCENCION KIRKPATRICK MD Ot I10 ESSENTIAL (PRIMARY) HYPERTENSION 12/02/2016 ASCENCION KIRKPATRICK MD Ot I16.1 HYPERTENSIVE EMERGENCY 12/02/2016 ASCENCION KIRKPATRICK MD Ot I25.10 ATHSCL HEART DISEASE OF [place] CORONARY 12/02/2016 ASCENCION KIRKPATRICK MD Ot I49.5 SICK SINUS SYNDROME 12/02/2016 ASCENCION KIRKPATRICK MD Ot I65.23 OCCLUSION AND STENOSIS OF BILATERAL [place] 12/02/2016 KAYA MCCORD, ASCENCION Martinez Ot R07.89 OTHER CHEST PAIN 12/02/2016 ASCENCION KIRKPATRICK MD Ot Z68.36 BODY MASS INDEX (BMI) 36.0-36.9, ADULT 12/02/2016 ASCENCION KIRKPATRICK MD Ot Z79.84 SHELTER (CURRENT) USE OF ORAL HYPOGLYC 12/02/2016 Ot 721.3 LUMBOSACRAL SPONDYLOSIS 12/02/2016 OSCAR PACK DO Ot 424.1 AORTIC VALVE DISORDER 12/02/2016 OSCAR PACK DO Ot Z12.31 ENCNTR SCREEN MAMMOGRAM FOR MALIGNANT NE 12/02/2016 OSCAR PACK DO Ot Z78.0 ASYMPTOMATIC MENOPAUSAL STATE 12/04/2016 Ot 721.3 LUMBOSACRAL SPONDYLOSIS 12/04/2016 OSCAR PACK DO Ot 424.1 AORTIC VALVE DISORDER 12/04/2016 OSCAR PACK DO Ot Z12.31 ENCNTR SCREEN MAMMOGRAM FOR MALIGNANT NE 12/04/2016 OSCAR PACK DO Ot Z78.0 ASYMPTOMATIC MENOPAUSAL STATE 12/04/2016 ANT FIELD MD Ot R07.89 OTHER CHEST PAIN 12/04/2016 ANT FIELD MD Ot R07.89 OTHER CHEST PAIN 12/04/2016 Ot 721.3 LUMBOSACRAL SPONDYLOSIS 12/04/2016 OSCAR PACK DO Ot 424.1 AORTIC VALVE DISORDER 12/04/2016 OSCAR PACK DO Ot Z12.31 ENCNTR SCREEN MAMMOGRAM FOR MALIGNANT NE 12/04/2016 OSCAR PACK DO Ot Z78.0 ASYMPTOMATIC MENOPAUSAL STATE 12/04/2016 ANT FIELD MD Ot R07.89 OTHER CHEST PAIN 12/04/2016 ANT FIELD MD Ot R07.89 OTHER CHEST PAIN 12/04/2016 ANT FIELD MD Ot R07.89 OTHER CHEST PAIN 12/04/2016 ANT FIELD MD Ot R07.89 OTHER CHEST PAIN 12/05/2016 ANT FIELD MD Ot I10 ESSENTIAL (PRIMARY) HYPERTENSION 12/05/2016 ANT FIELD MD Ot I63.9 CEREBRAL INFARCTION, UNSPECIFIED 12/05/2016 ANT FIELD MD Ot R00.1 BRADYCARDIA, UNSPECIFIED 12/05/2016 ANT FIELD MD Ot R07.89 OTHER CHEST PAIN 12/05/2016 ANT FIELD MD Ot I10 ESSENTIAL (PRIMARY) HYPERTENSION 12/05/2016 ANT FIELD MD Ot I63.9 CEREBRAL INFARCTION, UNSPECIFIED 12/05/2016 ANT FIELD MD Ot R00.1 BRADYCARDIA, UNSPECIFIED 12/05/2016 ANT FIELD MD Ot R07.89 OTHER CHEST PAIN 12/06/2016 Ot 721.3 LUMBOSACRAL SPONDYLOSIS 12/06/2016 OSCAR PACK DO Ot 424.1 AORTIC VALVE DISORDER 12/06/2016 OSCAR PACK DO Ot Z12.31 ENCNTR SCREEN MAMMOGRAM FOR MALIGNANT NE 12/06/2016 OSCAR PACK DO Ot Z78.0 ASYMPTOMATIC MENOPAUSAL STATE 12/06/2016 ANT FIELD MD Ot I10 ESSENTIAL (PRIMARY) HYPERTENSION 12/06/2016 ANT FIELD MD Ot I63.9 CEREBRAL INFARCTION, UNSPECIFIED 12/06/2016 RASHIDA MD, BASHAR J Ot R00.1 BRADYCARDIA, UNSPECIFIED 12/06/2016 RASHIDA MCCORD, ANT J Ot R07.89 OTHER CHEST PAIN Procedures Results Test Result Range Capillary blood glucose measurement by glucometer (mass/volume) - 06/08/16 17: 26 Capillary blood glucose measurement by glucometer (mass/volume) 81 mg/dL 70-110 Complete blood count (CBC) with automated white blood cell (WBC) differential - 06/08/16 17:29 Blood leukocytes automated count (number/volume) 7.7 10*3/ uL 4.3-11.0 Blood erythrocytes automated count (number/volume) 5.18 10*6 /uL 4.35-5.85 Venous blood hemoglobin measurement (mass/volume) 14.8 g/dL 11.5-16.0 Blood hematocrit (volume fraction) 43 % 35-52 Automated erythrocyte mean corpuscular volume 82 [foz_us] 80-99 Automated erythrocyte mean corpuscular hemoglobin (mass per erythrocyte) 29 pg 25-34 Automated erythrocyte mean corpuscular hemoglobin concentration measurement ( mass/volume) 35 g/dL 32-36 Automated erythrocyte distribution width ratio 13.4 % 10.0-14.5 Automated blood platelet count (count/volume) 211 10*3/uL 130-400 Automated blood platelet mean volume measurement 11.4 [foz_ us] 7.4-10.4 Automated blood neutrophils/100 leukocytes 50 % 42-75 Automated blood lymphocytes/100 leukocytes 38 % 12-44 Blood monocytes/100 leukocytes 7 % 0-12 Automated blood eosinophils/100 leukocytes 4 % 0-10 Automated blood basophils/100 leukocytes 1 % 0-10 Blood neutrophils automated count (number/volume) 3.8 10*3 1.8-7.8 Blood lymphocytes automated count (number/volume) 2.9 10*3 1.0-4.0 Blood monocytes automated count (number/volume) 0.5 10*3 0.0-1.0 Automated eosinophil count 0.3 10*3/uL 0.0-0.3 Automated blood basophil count (count/volume) 0.1 10*3/uL 0.0-0.1 PT panel in platelet poor plasma by coagulation assay - 06/08/16 17:29 Prothrombin time (PT) in platelet poor plasma by coagulation assay 12.3 s 12.2-14.7 INR in platelet poor plasma or blood by coagulation assay 0.9 0.8-1.4 Activated partial thromboplastin time (aPTT) in platelet poor plasma bycoagulation assay - 06/08/16 17:29 Activated partial thromboplastin time (aPTT) in platelet poor plasma bycoagulation assay 29 s 24-35 Fibrin D-dimer FEU measurement in platelet poor plasma (mass/volume) - 17:29 Fibrin D-dimer FEU measurement in platelet poor plasma (mass/volume) 0.30 ug/mL 0.00-0.49 Comprehensive metabolic panel - 06/08/16 17:29 Serum or plasma sodium measurement (moles/volume) 139 mmol/ L 135-145 Serum or plasma potassium measurement (moles/volume) 3.7 mmol/L 3.6-5.0 Serum or plasma chloride measurement (moles/volume) 103 mmol /L 98-107 Carbon dioxide 23 mmol/L 21-32 Serum or plasma anion gap determination (moles/volume) 13 mmol/L 5-14 Serum or plasma urea nitrogen measurement (mass/volume) 17 mg/dL 7-18 Serum or plasma creatinine measurement (mass/volume) 0.76 mg /dL 0.60-1.30 Serum or plasma urea nitrogen/creatinine mass ratio 22 NRG Serum or plasma creatinine measurement with calculation of estimated glomerular filtration rate > NRG Serum or plasma glucose measurement (mass/volume) 88 mg/dL 70-105 Serum or plasma calcium measurement (mass/volume) 9.7 mg/dL 8.5-10.1 Serum or plasma total bilirubin measurement (mass/volume) 0.4 mg/dL 0.1-1.0 Serum or plasma alkaline phosphatase measurement (enzymatic activity/volume) 101 U/L 40-136 Serum or plasma aspartate aminotransferase measurement (enzymatic activity/ volume) 18 U/L 5-34 Serum or plasma alanine aminotransferase measurement (enzymatic activity/volume ) 23 U/L 0-55 Serum or plasma protein measurement (mass/volume) 7.0 g/dL 6.4-8.2 Serum or plasma albumin measurement (mass/volume) 4.2 g/dL 3.2-4.5 Serum or plasma troponin i.cardiac measurement (mass/volume) - 06/08/16 17:29 Serum or plasma troponin i.cardiac measurement (mass/volume) < ng/mL <0.30 Complete urinalysis with reflex to culture - 06/08/16 17:53 Urine color determination YELLOW NRG Urine clarity determination CLEAR NRG Urine pH measurement by test strip 5 5- 9 Specific gravity of urine by test strip 1.020 1.016-1.022 Urine protein assay by test strip, semi-quantitative NEGATIVE NEGATIVE Urine glucose detection by automated test strip NEGATIVE NEGATIVE Erythrocytes detection in urine sediment by light microscopy NEGATIVE NEGATIVE Urine ketones detection by automated test strip NEGATIVE NEGATIVE Urine nitrite detection by test strip NEGATIVE NEGATIVE Urine total bilirubin detection by test strip NEGATIVE NEGATIVE Urine urobilinogen measurement by automated test strip (mass/volume) NORMAL NORMAL Urine leukocyte esterase detection by dipstick NEGATIVE NEGATIVE Automated urine sediment erythrocyte count by microscopy (number/high power field) NONE NRG Automated urine sediment leukocyte count by microscopy (number/high power field ) RARE NRG Bacteria detection in urine sediment by light microscopy TRACE NRG Squamous epithelial cells detection in urine sediment by light microscopy 5-10 NRG Crystals detection in urine sediment by light microscopy PRESENT NRG Casts detection in urine sediment by light microscopy PRESENT NRG Mucus detection in urine sediment by light microscopy MODERATE NRG Complete urinalysis with reflex to culture NO NRG Amorphous sediment detection in urine sediment by light microscopy FEW LIV URATES NRG Hyaline casts detection in urine sediment by light microscopy RARE NRG Granular casts detection in urine sediment by light microscopy RARE NRG Lipid 1996 panel - 06/09/16 03:50 Serum or plasma triglyceride measurement (mass/volume) 114 mg/dL <150 Serum or plasma cholesterol measurement (mass/volume) 179 mg /dL < 200 Serum or plasma cholesterol in HDL measurement (mass/volume) 43 mg/dL 40-60 Cholesterol in LDL [mass/volume] in serum or plasma by direct assay 120 mg/dL 1-129 Serum or plasma cholesterol in VLDL measurement (mass/volume) 23 mg/dL 5-40 Complete blood count (CBC) with automated white blood cell (WBC) differential - 12/01/16 20:46 Blood leukocytes automated count (number/volume) 6.8 10*3/ uL 4.3-11.0 Blood erythrocytes automated count (number/volume) 4.99 10*6 /uL 4.35-5.85 Venous blood hemoglobin measurement (mass/volume) 13.9 g/dL 11.5-16.0 Blood hematocrit (volume fraction) 41 % 35-52 Automated erythrocyte mean corpuscular volume 82 [foz_us] 80-99 Automated erythrocyte mean corpuscular hemoglobin (mass per erythrocyte) 28 pg 25-34 Automated erythrocyte mean corpuscular hemoglobin concentration measurement ( mass/volume) 34 g/dL 32-36 Automated erythrocyte distribution width ratio 14.2 % 10.0-14.5 Automated blood platelet count (count/volume) 206 10*3/uL 130-400 Automated blood platelet mean volume measurement 11.6 [foz_ us] 7.4-10.4 Automated blood neutrophils/100 leukocytes 41 % 42-75 Automated blood lymphocytes/100 leukocytes 44 % 12-44 Blood monocytes/100 leukocytes 8 % 0-12 Automated blood eosinophils/100 leukocytes 7 % 0-10 Automated blood basophils/100 leukocytes 1 % 0-10 Blood neutrophils automated count (number/volume) 2.8 10*3 1.8-7.8 Blood lymphocytes automated count (number/volume) 3.0 10*3 1.0-4.0 Blood monocytes automated count (number/volume) 0.5 10*3 0.0-1.0 Automated eosinophil count 0.5 10*3/uL 0.0-0.3 Automated blood basophil count (count/volume) 0.1 10*3/uL 0.0-0.1 PT panel in platelet poor plasma by coagulation assay - 12/01/16 20:46 Prothrombin time (PT) in platelet poor plasma by coagulation assay 12.5 s 12.2-14.7 INR in platelet poor plasma or blood by coagulation assay 1.0 0.8-1.4 Activated partial thromboplastin time (aPTT) in platelet poor plasma bycoagulation assay - 12/01/16 20:46 Activated partial thromboplastin time (aPTT) in platelet poor plasma bycoagulation assay 29 s 24-35 Fibrin D-dimer FEU measurement in platelet poor plasma (mass/volume) - 20:46 Fibrin D-dimer FEU measurement in platelet poor plasma (mass/volume) < ug/mL 0.00-0.49 Comprehensive metabolic panel - 12/01/16 20:46 Serum or plasma sodium measurement (moles/volume) 138 mmol/ L 135-145 Serum or plasma potassium measurement (moles/volume) 3.9 mmol/L 3.6-5.0 Serum or plasma chloride measurement (moles/volume) 100 mmol /L 98-107 Carbon dioxide 28 mmol/L 21-32 Serum or plasma anion gap determination (moles/volume) 10 mmol/L 5-14 Serum or plasma urea nitrogen measurement (mass/volume) 21 mg/dL 7-18 Serum or plasma creatinine measurement (mass/volume) 0.83 mg /dL 0.60-1.30 Serum or plasma urea nitrogen/creatinine mass ratio 25 NRG Serum or plasma creatinine measurement with calculation of estimated glomerular filtration rate > NRG Serum or plasma glucose measurement (mass/volume) 105 mg/dL 70-105 Serum or plasma calcium measurement (mass/volume) 9.3 mg/dL 8.5-10.1 Serum or plasma total bilirubin measurement (mass/volume) 0.3 mg/dL 0.1-1.0 Serum or plasma alkaline phosphatase measurement (enzymatic activity/volume) 81 U/L 40-136 Serum or plasma aspartate aminotransferase measurement (enzymatic activity/ volume) 18 U/L 5-34 Serum or plasma alanine aminotransferase measurement (enzymatic activity/volume ) 26 U/L 0-55 Serum or plasma protein measurement (mass/volume) 6.5 g/dL 6.4-8.2 Serum or plasma albumin measurement (mass/volume) 3.9 g/dL 3.2-4.5 Magnesium - 12/01/16 20:46 Magnesium 2.2 mg/dL 1.8-2.4 Serum or plasma troponin i.cardiac measurement (mass/volume) - 12/01/16 20:46 Serum or plasma troponin i.cardiac measurement (mass/volume) < ng/mL <0.30 Myoglobin, serum - 12/01/16 20:46 Myoglobin, serum 21.1 ng/mL 10.0-92.0 Complete urinalysis with reflex to culture - 12/01/16 21:00 Urine color determination YELLOW NRG Urine clarity determination CLEAR NRG Urine pH measurement by test strip 7 5- 9 Specific gravity of urine by test strip 1.005 1.016-1.022 Urine protein assay by test strip, semi-quantitative NEGATIVE NEGATIVE Urine glucose detection by automated test strip NEGATIVE NEGATIVE Erythrocytes detection in urine sediment by light microscopy NEGATIVE NEGATIVE Urine ketones detection by automated test strip NEGATIVE NEGATIVE Urine nitrite detection by test strip NEGATIVE NEGATIVE Urine total bilirubin detection by test strip NEGATIVE NEGATIVE Urine urobilinogen measurement by automated test strip (mass/volume) NORMAL NORMAL Urine leukocyte esterase detection by dipstick NEGATIVE NEGATIVE Automated urine sediment erythrocyte count by microscopy (number/high power field) NONE NRG Automated urine sediment leukocyte count by microscopy (number/high power field ) RARE NRG Bacteria detection in urine sediment by light microscopy NEGATIVE NRG Squamous epithelial cells detection in urine sediment by light microscopy 10-25 NRG Crystals detection in urine sediment by light microscopy NONE NRG Casts detection in urine sediment by light microscopy NONE NRG Mucus detection in urine sediment by light microscopy NEGATIVE NRG Complete urinalysis with reflex to culture NO NRG Renal epithelial cells detection in urine sediment by light microscopy NONE NRG Serum or plasma troponin i.cardiac measurement (mass/volume) - 12/02/16 02:15 Serum or plasma troponin i.cardiac measurement (mass/volume) < ng/mL <0.30 Complete blood count (CBC) with automated white blood cell (WBC) differential - 12/02/16 04:12 Blood leukocytes automated count (number/volume) 6.8 10*3/ uL 4.3-11.0 Blood erythrocytes automated count (number/volume) 4.53 10*6 /uL 4.35-5.85 Venous blood hemoglobin measurement (mass/volume) 12.5 g/dL 11.5-16.0 Blood hematocrit (volume fraction) 37 % 35-52 Automated erythrocyte mean corpuscular volume 82 [foz_us] 80-99 Automated erythrocyte mean corpuscular hemoglobin (mass per erythrocyte) 28 pg 25-34 Automated erythrocyte mean corpuscular hemoglobin concentration measurement ( mass/volume) 34 g/dL 32-36 Automated erythrocyte distribution width ratio 14.1 % 10.0-14.5 Automated blood platelet count (count/volume) 175 10*3/uL 130-400 Automated blood platelet mean volume measurement 11.8 [foz_ us] 7.4-10.4 Automated blood neutrophils/100 leukocytes 47 % 42-75 Automated blood lymphocytes/100 leukocytes 39 % 12-44 Blood monocytes/100 leukocytes 7 % 0-12 Automated blood eosinophils/100 leukocytes 7 % 0-10 Automated blood basophils/100 leukocytes 1 % 0-10 Blood neutrophils automated count (number/volume) 3.2 10*3 1.8-7.8 Blood lymphocytes automated count (number/volume) 2.6 10*3 1.0-4.0 Blood monocytes automated count (number/volume) 0.5 10*3 0.0-1.0 Automated eosinophil count 0.5 10*3/uL 0.0-0.3 Automated blood basophil count (count/volume) 0.0 10*3/uL 0.0-0.1 Comprehensive metabolic panel - 12/02/16 04:12 Serum or plasma sodium measurement (moles/volume) 139 mmol/ L 135-145 Serum or plasma potassium measurement (moles/volume) 3.3 mmol/L 3.6-5.0 Serum or plasma chloride measurement (moles/volume) 104 mmol /L 98-107 Carbon dioxide 26 mmol/L 21-32 Serum or plasma anion gap determination (moles/volume) 9 mmol/L 5-14 Serum or plasma urea nitrogen measurement (mass/volume) 19 mg/dL 7-18 Serum or plasma creatinine measurement (mass/volume) 0.74 mg /dL 0.60-1.30 Serum or plasma urea nitrogen/creatinine mass ratio 26 NRG Serum or plasma creatinine measurement with calculation of estimated glomerular filtration rate > NRG Serum or plasma glucose measurement (mass/volume) 115 mg/dL 70-105 Serum or plasma calcium measurement (mass/volume) 8.8 mg/dL 8.5-10.1 Serum or plasma total bilirubin measurement (mass/volume) 0.4 mg/dL 0.1-1.0 Serum or plasma alkaline phosphatase measurement (enzymatic activity/volume) 67 U/L 40-136 Serum or plasma aspartate aminotransferase measurement (enzymatic activity/ volume) 16 U/L 5-34 Serum or plasma alanine aminotransferase measurement (enzymatic activity/volume ) 21 U/L 0-55 Serum or plasma protein measurement (mass/volume) 5.6 g/dL 6.4-8.2 Serum or plasma albumin measurement (mass/volume) 3.4 g/dL 3.2-4.5 Lipid 1996 panel - 12/02/16 04:12 Serum or plasma triglyceride measurement (mass/volume) 95 mg /dL <150 Serum or plasma cholesterol measurement (mass/volume) 160 mg /dL < 200 Serum or plasma cholesterol in HDL measurement (mass/volume) 40 mg/dL 40-60 Cholesterol in LDL [mass/volume] in serum or plasma by direct assay 111 mg/dL 1-129 Serum or plasma cholesterol in VLDL measurement (mass/volume) 19 mg/dL 5-40 Encounters ACCT No. Visit Date/Time Discharge Status Pt. Type Provider Facility Loc./Unit Complaint [id number] 12/25/2012 10:56:30 RECURRING
--- OUTSIDE RECORDS SUMMARY | 2016-12-18 08:40 | XMS REPORT | Continuity of Care Document ---
Demographics Preferred Language Unknown Marital Status Unknown Nondenominational Affiliation Unknown Race Unknown Ethnic Group Unknown Author Author [facility] Address Unknown Phone Unavailable Allergies Active Description Code Type Severity Reaction Onset Reported/Identified Relationship to Patient Clinical Status Yes No Known Drug Allergies [id number] Drug Allergy Unknown N/ A 06/08/2016 Yes Sulfa (Sulfonamide Antibiotics) [id number] Drug Allergy Unknown N/A 06/08/2016 Medications Problems [...] Ot 424.1 AORTIC VALVE DISORDER 06/13/2016 OSCAR PACK DO Ot Z12.31 ENCNTR SCREEN [...] MD Ot I25.10 ATHSCL HEART DISEASE OF [place] CORONARY 12/02/2016 ASCENCION KIRKPATRICK MD Ot I49.5 SICK SINUS SYNDROME 12/02/2016 ASCENCION KIRKPATRICK MD Ot I65.23 OCCLUSION AND STENOSIS OF [place] 12/02/2016 KAYA MCCORD, ASCENCION Martinez Ot R07.89 OTHER CHEST PAIN 12/02/2016 ASCENCION KIRKPATRICK MD Ot Z68.36 BODY MASS INDEX (BMI) 36.0-36.9, ADULT 12/02/2016 ASCENCION KIRKPATRICK MD Ot Z79.84 [facility] (CURRENT) USE OF ORAL HYPOGLYC 12/02/2016 Ot 721.3 LUMBOSACRAL SPONDYLOSIS 12/02/2016 OCSAR PACK DO Ot 424.1 AORTIC VALVE DISORDER [...]
[2016-12-18 09:20] VITALS: BP 142/60
[2016-12-18 10:23] VITALS: BP 144/77
--- NOTE | 2016-12-19 11:32 | DISCHARGE SUMMARY ---
PROCEDURE PHYSICIAN: ANT FIELD REVEAL DEVICE IMPLANTATION REPORT DATE OF PROCEDURE: 12/18/2016 REFERRING PHYSICIAN: Dr. Judge BRIEF HISTORY: Mrs. Mendieta is a 71-year-old lady with a history of sick sinus syndrome, bradycardia, recurrent palpitation. She has a history of cryptogenic stroke. She was scheduled for Reveal device implantation. PROCEDURE NOTE: After explaining the procedure to the patient, all pros and cons were explained. All questions were answered. The patient signed a consent and then she was placed on the cardiac catheterization laboratory. No sedation was needed. Local anesthesia applied to small skin incision was made. Then a Reveal LINQ BalconyTVtronic with device with serial [id number] placed subcutaneously. Manual pressure and Dermabond applied. No complication noted. CONCLUSION: Successful Reveal device implantation with no complications. FINAL DIAGNOSES: 1. Sick sinus syndrome. 2. Recurrent palpitations. 3. Cryptogenic stroke Job ID: [id number] Dictated Date: 12/18/2016 10:19:21 Regulatory And Compliance Technician Date: 12/19/2016 11:29:18/suzanne
== END ==
LOC: CATH 08:35
PROVIDERS: ATTEND Internal Medicine Cardiovascular Disease
DX: I49.5 Sick sinus syndrome (principal); R00.2 Palpitations; I63.9 Cerebral infarction, unspecified; I10 Essential (primary) hypertension; I44.4 Left anterior fascicular block; Z79.899 Other long term (current) drug therapy
CPT/HCPCS: 33282

== ENCOUNTER → 2016-12-19 | Outpatient (CLI) | payer MEDICARE, OTHER ==
--- OUTSIDE RECORDS SUMMARY | 2016-12-19 11:51 | XMS REPORT | Continuity of Care Document ---
Demographics Preferred Language Unknown Marital Status Unknown Evangelical Affiliation Unknown Race Unknown Ethnic Group Unknown Author Author [facility] Address Unknown Phone Unavailable Allergies Active Description Code Type Severity Reaction Onset Reported/Identified Relationship to Patient Clinical Status Yes No Known Drug Allergies [id number] Drug Allergy Unknown N/ A 06/08/2016 Yes Sulfa (Sulfonamide Antibiotics) [id number] Drug Allergy Unknown N/A 06/08/2016 Medications Problems [...] MD Ot I25.10 ATHSCL HEART DISEASE OF [place] CORONARY 12/02/2016 ASCENCION KIRKPATRICK MD Ot I49.5 SICK SINUS SYNDROME 12/02/2016 ASCENCION KIRKPATRICK MD Ot I65.23 OCCLUSION AND STENOSIS OF [place] 12/02/2016 KAYA MCCORD, ASCENCION Martinez Ot R07.89 OTHER CHEST PAIN 12/02/2016 ASCENCION KIRKPATRICK MD Ot Z68.36 BODY MASS INDEX (BMI) 36.0-36.9, ADULT 12/02/2016 ASCENCION KIRKPATRICK MD Ot Z79.84 CUSTODIAL (CURRENT) USE OF ORAL HYPOGLYC 12/02/2016 Ot [...]
--- NOTE | 2016-12-20 06:54 | ECHOCARDIOGRAPHY REPORT ---
PROCEDURE PHYSICIAN: ANT FIELD DATE OF PROCEDURE: 12/19/2016 TWO DIMENSIONAL ECHOCARDIOGRAM REPORT PRIMARY PHYSICIAN: OTHER PHYSICIAN: REFERRING PHYSICIAN: Dr. Uziel Judge ORDERING PHYSICIAN: INDICATION FOR THE PROCEDURE: 1. CVA. 2. Hypertension. MEASUREMENTS DERIVED VALUES LV DIAMETER (LAX) NORMALS NORMALS Diastolic 4.7 (3.6-5.2) Eject. Fract. 60% (60%+/-6%) Systolic (2.3-3.9) Diastolic Vol. % Shortening (0.22-0.42) Systolic Vol. Aortic Root IVS THICKNESS Diastolic 1.1 (0.6-1.1) LVPW THICKNESS Diastolic 1.1 (0.6-1.1) LA DIAMETER Systolic 3.5 (2.1-3.7) FINDINGS: 1. Technical quality is good. 2. The left ventricle is normal in size with normal contractility. Systolic function appeared to be normal. Estimated ejection fraction 60%. 3. The left atrium is normal in size. No clot or thrombus were seen within the left atrium. 4. The right atrium and right ventricle are normal in size. No clot or thrombus were seen within the right side. 5. Mitral valve is normal in morphology with mild mitral regurgitation noted by color Doppler flow. No mitral valve prolapse. No mitral valve stenosis. 6. Aortic valve is mildly calcified. There is no significant aortic valve stenosis or regurgitation seen. 7. Tricuspid valve is normal in morphology with mild tricuspid regurgitation noted by color Doppler flow. Doppler across tricuspid valve estimated pulmonary artery pressure of 11+ right atrial pressure. 8. Pulmonic valve is functioning normally. 9. No pericardial effusion. CONCLUSION: 1. Normal left ventricular size and systolic function. Estimated ejection fraction 60%. 2. Mild mitral and tricuspid regurgitation. 3. Aortic valve sclerosis. No aortic stenosis. 4. Estimated pulmonary artery pressure of 20 mmHg. Job ID: [id number] Dictated Date: 12/19/2016 16:53:56 Manager Event Date: 12/20/2016 06:50:37 / luis armando
== END ==
LOC: CARD 11:47
PROVIDERS: ATTEND Physician Assistant
DX: I63.9 Cerebral infarction, unspecified (principal); I10 Essential (primary) hypertension; I16.1 Hypertensive emergency; I44.4 Left anterior fascicular block
CPT/HCPCS: 93306

== ENCOUNTER → 2017-01-15 | Outpatient (CLI) | payer MEDICARE, OTHER ==
--- NOTE | 2017-01-15 12:53 | Diagnostic Imaging Report ---
PROCEDURE: CT sinuses without contrast TECHNIQUE: Multiple contiguous axial images were obtained through the sinuses without the use of intravenous contrast. Coronal and sagittal reformations were then performed. INDICATION: Chronic sinusitis. COMPARISON: No prior studies are available for comparison. Correlation however is made with CT of the head from 06/08/2016. FINDINGS: The previously seen complete opacification of the right maxillary sinus has significantly improved. There is now mild mucosal thickening in both maxillary sinuses and there is a small air-fluid level in the right maxillary sinus. There is mild to moderate mucosal thickening in the ethmoid air cells worse posteriorly. There is mild mucosal thickening in the frontal sinus. Mild mucosal thickening is also seen in the sphenoidal sinuses. The ostiomeatal complex along the drainage pathway of the maxillary sinuses demonstrate mild mucosal thickening narrowing its lumen on both sides. The nasal cavity demonstrates only mild mucosal thickening along the inferior turbinates and the septum. There is nasal septal deviation to the right. There is preserved patent nasal passages. The mastoid air cells and middle ear cavities appear aerated. There is no aggressive appearing mass or evidence of bone destruction. The orbits appear symmetric. IMPRESSION: Pansinusitis. Dictated by: Dictated on workstation # [id number]
== END ==
LOC: RAD 12:26
PROVIDERS: ATTEND Otolaryngology Otolaryngology/Facial Plastic Surgery
DX: J32.9 Chronic sinusitis, unspecified (principal)
CPT/HCPCS: 70486

== ENCOUNTER → 2017-08-21 | Outpatient (CLI) | payer MEDICARE, OTHER ==
--- NOTE | 2017-08-21 13:29 | Diagnostic Imaging Report ---
PROCEDURE: US Gallbladder. TECHNIQUE: Multiple real-time grayscale images were obtained over the right upper quadrant in various projections. INDICATION: Nausea. FINDINGS: The area of the pancreas is largely obscured by bowel gas. The liver is fairly homogeneous with no focal lesion seen. The liver measures 19.6 cm craniocaudally, borderline enlarged. There is hepatopetal flow in the portal vein. No hepatic mass is identified. There is a prominent gallstone measuring 2.4 cm in size. No significant gallbladder wall thickening or pericholecystic fluid. The CBD is obscured. The right kidney is 11.7 cm in length with no hydronephrosis or focal lesion. IMPRESSION: Cholelithiasis. Borderline liver size. Dictated by: Dictated on workstation # [id number]
== END ==
LOC: RAD 09:08
PROVIDERS: ATTEND Internal Medicine
DX: R10.13 Epigastric pain (principal)
CPT/HCPCS: 76705

== ENCOUNTER 2018-04-24 20:41 | Emergency (ER) | payer MEDICARE, OTHER ==
[~2018-04-24] VITALS: Ht 154.9 cm; Wt 90.7 kg
[~2018-04-24 20:41] MED LIST changes: +ACHD5005 PO; -METF1000 PO; +METF10002 PO
[2018-04-24] MEDS ORDERED: morphine INJ 10 MG/ML 1ML (SYR OR VIAL) IV STA (20:54)
[2018-04-24 21:10] LABS: BASOPHILS # (AUTO) 0.1 10^3/uL (0.0-0.1); BASOPHILS % (AUTO) 1 % (0-10); EOSINOPHILS # (AUTO) 0.5 10^3/uL (0.0-0.3); EOSINOPHILS % (AUTO) 6 % (0-10); HEMATOCRIT 38 % (35-52); HEMOGLOBIN 12.9 G/DL (11.5-16.0); LYMPHOCYTES # (AUTO) 1.9 X 10^3 (1.0-4.0); LYMPHOCYTES % (AUTO) 25 % (12-44); MEAN CORPUSCULAR HEMOGLOBIN 28 PG (25-34); MEAN CORPUSCULAR HGB CONC 34 G/DL (32-36); MEAN CORPUSCULAR VOLUME 83 FL (80-99); MEAN PLATELET VOLUME 10.9 FL (7.4-10.4); MONOCYTES # (AUTO) 0.5 X 10^3 (0.0-1.0); MONOCYTES % (AUTO) 6 % (0-12); NEUTROPHILS # (AUTO) 4.7 X 10^3 (1.8-7.8); NEUTROPHILS % (AUTO) 61 % (42-75); PLATELET COUNT 220 10^3/uL (130-400); RED BLOOD COUNT 4.58 10^6/uL (4.35-5.85); RED CELL DISTRIBUTION WIDTH 13.7 % (10.0-14.5); WHITE BLOOD COUNT 7.7 10^3/uL (4.3-11.0)
[2018-04-24 21:22] LABS: PROTHROMBIN TIME PATIENT 12.8 SEC (12.2-14.7)
--- NOTE | 2018-04-24 21:28 | Diagnostic Imaging Report ---
INDICATION: Chest pressure PA and lateral chest obtained at 9:42 p.m. Heart and mediastinal silhouette are normal in appearance. The lungs are clear. There is no pneumothorax or pleural fluid. IMPRESSION: Negative chest. No change from 12/01/2016. Dictated by: Dictated on workstation # [id number]
[2018-04-24 21:32] LABS: ALANINE AMINOTRANSFERASE 21 U/L (0-55); ALBUMIN 4.1 GM/DL (3.2-4.5); ALKALINE PHOSPHATASE 89 U/L (40-136); BILIRUBIN,TOTAL 0.4 MG/DL (0.1-1.0); BUN/CREATININE RATIO 18; CALCIUM 9.9 MG/DL (8.5-10.1); CARBON DIOXIDE 26 MMOL/L (21-32); CHLORIDE 102 MMOL/L (98-107); CREATININE SERUM 0.77 MG/DL (0.60-1.30); GFR ESTIMATED > 60; GLUCOSE 111 MG/DL (70-105); MAGNESIUM 1.9 MG/DL (1.8-2.4); POTASSIUM 4.2 MMOL/L (3.6-5.0); SODIUM 137 MMOL/L (135-145); TOTAL PROTEIN 6.9 GM/DL (6.4-8.2)
[2018-04-24 21:39] LABS: MYOGLOBIN SERUM 31.2 NG/ML (10.0-92.0)
--- NOTE | 2018-04-24 21:59 | ED Chest Pain ---
General Chief Complaint: Chest Pain Stated Complaint: PRESSURE IN CHEST History of Present Illness Date Seen by Provider: Apr 24, 2018 Time Seen by Provider: 20:45 Initial Comments 73-year-old female presents for left-sided chest pain, she reports the pain has been present for approximately one month since having a mammogram. She has a Reveal device implanted in the left chest wall. Patient does report that she attended a earlier today and has been having some anxiety related to that. She has taken Xanax in the past for anxiety but none recently. Timing/Duration: 1-3 hours Severity/Quality: mild Location: substernal, shoulder Radiation: no radiation Activities at Onset: emotional stress Prior CP/Workup: cardiac cath, echocardiography, stress test ASA po FINISHING RANGE FEEDER: No NTG SL FINISHING RANGE FEEDER: No Associated Symptoms: denies symptoms Allergies and Home Medications Allergies Coded Allergies: Sulfa (Sulfonamide Antibiotics) (Verified Allergy, Mild, RASH, 08/28/17) Home Medications Albuterol Sulfate 8.5 Gm Hfa.aer.ad, 2 PUFF INH Q4H PRN for SHORTNESS OF BREATH, (Reported) Alprazolam 0.25 Mg Tablet, 0.25 MG PO Q8H Prescribed by: JOSIAS MOMIN on 04/24/18 4007 Amlodipine Besylate 10 Mg Tablet, 10 MG PO DAILY, (Reported) Aspirin 325 Mg Tablet.dr, 325 MG PO DAILY, (Reported) Carvedilol 6.25 Mg Tablet, 3.125 MG PO DAILY, (Reported) TAKES 1/2 (6.25MG) TABLET Fluticasone Propionate 9.9 Ml [place].susp, 2 SPRAYS NS DAILY PRN for ALLERGIES, ( Reported) Glimepiride 1 Mg Tablet, 1 MG PO DAILY, (Reported) Hydrocodone Bit/Acetaminophen 1 Each Tablet, 1 TAB PO Q6H PRN Prescribed by: MERNA DURAN on 09/04/17 1330 Lisinopril 10 Mg Tablet, 10 MG PO DAILY@0900 Prescribed by: ANT RUIZ on 12/02/16 1248 Metformin HCl 1,000 Mg Tablet, 1,000 MG PO BID, (Reported) Pravastatin Sodium 40 Mg Tablet, 40 MG PO DAILY, (Reported) Triamterene/Hydrochlorothiazid 1 Each Capsule, 1 CAP PO DAILY, (Reported) Patient Home Medication List Home Medication List Reviewed: Yes Review of Systems Constitutional: no symptoms reported, see HPI Cardiovascular: See HPI, Chest Pain Psychiatric/Neurological: See HPI, Anxiety All Other Systems Reviewed Negative Unless Noted: Yes Past Slpfsey-Cixwvq-Ufhsrt Hx Past Med/Social Hx: Reviewed Nursing Past Med/Soc Hx Patient Social History 2nd Hand Smoke Exposure: No Recent Foreign Travel: No Contact w/Someone Who Travel: No Recent Hopitalizations: No Immunizations Up To Date Tetanus Booster (TDap): Unknown Date of Pneumonia Vaccine: Jul 20, 2015 Date of Influenza Vaccine: Aug 04, 2017 Seasonal Allergies Seasonal Allergies: Yes Past Medical History Surgeries: Yes (Stress test and Heart cath) Hysterectomy Respiratory: Yes Asthma Currently Using CPAP: No Currently Using BIPAP: No Cardiac: Yes (Heart Cath ("clean")) Heart Murmur, High Cholesterol, Hypertension Neurological: No Headaches /Migraines, Stroke 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 Sexually Transmitted Disease: No HIV/AIDS: No Gastrointestinal: No Gastroesophageal Reflux, Diverticulosis, Gall Bladder Disease Musculoskeletal: No Arthritis Endocrine: Yes Diabetes, Non-Insulin dep Loss of Vision: Bilateral Hearing Impairment: Denies Cancer: No Psychosocial: No Anxiety, Depression Integumentary: No Blood Disorders: No Adverse Reaction/Blood Tranf: No (N/A) Family Medical History Cerebral hemorrhage 19 FATHER Diabetes mellitus 19 MOTHER FH: breast cancer 19 MOTHER FH: ovarian cancer 19 MOTHER Hypertension 19 FATHER 19 MOTHER No Pertinent Family Hx Physical Exam Vital Signs Vital Signs - First Documented 04/24/18 04/24/18 20:47 23:00 Temp 96.8 Pulse 58 Resp 14 B/P (MAP) 106/43 (64) Pulse Ox 99 O2 Delivery Room Air Capillary Refill : Height, Weight, BMI Height: 5', 2.00" Weight: 203lbs 1.0oz, [id number] Method:Stated ,37.1BMI General Appearance: No Apparent Distress, WD/WN HEENT: PERRL/EOMI, TMs Normal, Normal ENT Inspection, Pharynx Normal Neck: Full Range of Motion, Normal Inspection, Non Tender, Supple Respiratory: Chest Non Tender, Lungs Clear, Normal Breath Sounds Cardiovascular: Regular Rate, Rhythm, No Edema, Normal Peripheral Pulses Gastrointestinal: Normal Bowel Sounds, Non Tender, Soft Neurologic/Psychiatric: Alert, Oriented x3, Normal Mood/Affect Skin: Normal Color, Warm/Dry Progress/Results/Core Measures Results/Orders Lab Results Laboratory Tests Test 04/24/18 21:00 Range/Units White Blood Count 7.7 4.3-11.0 10^3/uL Red Blood Count 4.58 4.35-5.85 10^6/uL Hemoglobin 12.9 11.5-16.0 G/DL Hematocrit 38 35-52 % Mean Corpuscular Volume 83 80-99 FL Mean Corpuscular Hemoglobin 28 25-34 PG Mean Corpuscular Hemoglobin Concent 34 32-36 G/DL Red Cell Distribution Width 13.7 10.0-14.5 % Platelet Count 220 130-400 10^3/uL Mean Platelet Volume 10.9 H 7.4-10.4 FL Neutrophils (%) (Auto) 61 42-75 % Lymphocytes (%) (Auto) 25 12-44 % Monocytes (%) (Auto) 6 0-12 % Eosinophils (%) (Auto) 6 0-10 % Basophils (%) (Auto) 1 0-10 % Neutrophils # (Auto) 4.7 1.8-7.8 X 10^3 Lymphocytes # (Auto) 1.9 1.0-4.0 X 10^3 Monocytes # (Auto) 0.5 0.0-1.0 X 10^3 Eosinophils # (Auto) 0.5 H 0.0-0.3 10^3/uL Basophils # (Auto) 0.1 0.0-0.1 10^3/uL Prothrombin Time 12.8 12.2-14.7 SEC INR Comment 1.0 0.8-1.4 Activated Partial Thromboplast Time 29 24-35 SEC Sodium Level 137 135-145 MMOL/L Potassium Level 4.2 3.6-5.0 MMOL/L Chloride Level 102 98-107 MMOL/L Carbon Dioxide Level 26 21-32 MMOL/L Anion Gap 9 5-14 MMOL/L Blood Urea Nitrogen 14 7-18 MG/DL Creatinine 0.77 0.60-1.30 MG/DL Estimat Glomerular Filtration Rate > 60 BUN/Creatinine Ratio 18 Glucose Level 111 H 70-105 MG/DL Calcium Level 9.9 8.5-10.1 MG/DL Magnesium Level 1.9 1.8-2.4 MG/DL Total Bilirubin 0.4 0.1-1.0 MG/DL Aspartate Amino Transf (AST/SGOT) 26 5-34 U/L Alanine Aminotransferase (ALT/SGPT) 21 0-55 U/L Alkaline Phosphatase 89 40-136 U/L Myoglobin 31.2 10.0-92.0 NG/ML Troponin I < 0.30 <0.30 NG/ML Total Protein 6.9 6.4-8.2 GM/DL Albumin 4.1 3.2-4.5 GM/DL My Orders Orders - JOSIAS MOMIN CRA Cbc With Automated Diff (04/24/18 20:54) Magnesium (04/24/18 20:54) Ekg Tracing (04/24/18 20:54) Cardiac Profile 1 (04/24/18 20:54) Comprehensive Metabolic Panel (04/24/18 20:54) Myoglobin Serum (04/24/18 20:54) Protime With Inr (04/24/18 20:54) Partial Thromboplastin Time (04/24/18 20:54) O2 (04/24/18 20:54) Monitor-Rhythm Ecg Trace Only (04/24/18 20:54) Morphine Injection (Morphine Injection (04/24/18 20:54) Saline Lock/Iv-Start (04/24/18 20:54) Chest Pa/Lat (2 View) (04/24/18 20:54) Alprazolam Tablet (Xanax Tablet) (04/24/18 23:00) Medications Given in ED Current Medications Medications Dose Ordered Sig/[place] Route Start Time Stop Time Status Last Admin Dose Admin Alprazolam 0.25 mg STK-MED ONCE .ROUTE 04/24/18 23:00 04/24/18 23:01 DC 04/24/18 23:03 0.25 MG Vital Signs/I&O 04/24/18 04/24/18 04/24/18 20:47 20:47 23:00 Temp 96.8 96.8 Pulse 58 58 Resp 14 14 B/P (MAP) 106/43 (64) 141/50 (64) Pulse Ox 99 O2 Delivery Room Air Room Air Room Air Progress Progress Note : Time: 20:45 Progress Note Initial evaluation completed, will start chest pain workup and reevaluate. 2100 initial EKG within normal limits and unchanged from previous. 2130 patient does report relief of her chest pain. Will continue to monitor. 2200 all labs within normal limits. Discussed with patient and she feels much better at this time. 2230 Xanax 0.25 mg orally for anxiety. 2240 discharge instructions and return precautions reviewed with the patient and her spouse in detail, all questions answered. Initial ECG Impression Date: Apr 24, 2018 Initial ECG Impression Time: 20:50 Initial ECG Rate: 56 Initial ECG Rhythm: Normal Sinus Initial ECG Intervals: Normal Initial ECG Intervals MS 196, QRS D1 10, QT 468, QTC 452. [place] P 11, QRS -40 T 19 Initial ECG Impression: Normal Initial ECG Comparisson: Unchanged Comment Reviewed with Dr. Jacobsen, concurred with interpretation. Diagnostic Imaging Diagonstic Imaging: Xray Plain Films/CT/US/NM/MRI: chest Comments NAME: [facility] REC#: [id number] PT STATUS: REG ER : 1945 PHYSICIAN: JOSIAS MOMIN ADMIT DATE: 04/24/18/ER Draft Date of Exam:04/24/18 CHEST PA/LAT (2 VIEW) INDICATION: Chest pressure PA and lateral chest obtained at 9:42 p.m. Heart and mediastinal silhouette are normal in appearance. The lungs are clear. There is no pneumothorax or pleural fluid. IMPRESSION: Negative chest. No change from 12/01/2016. Dictated on workstation # [id number] Dict: 04/24/182123 Trans: 04/24/182127 TRISTEN [id number] Interpreted by: GABBI VELASCO MD Electronically signed by: Reviewed: Reviewed by Me (implant noted in left chest wall, and palpable with history of Reveal implant on 12/18/[address] Ruiz.) Departure Impression Primary Impression: Chest wall pain Disposition: HOME, SELF-CARE Condition: Stable Departure-Patient Inst. Decision time for Depature: 22:40 Referrals: OSCAR PACK DO (PCP/Family) Primary Care Physician Patient Instructions: Chest Pain That Is Not Caused by the Heart (DC) Add. Discharge Instructions: Continue to take your home medication as instructed. You may take ibuprofen 600 mg every 8 hours for pain. Continue taking your aspirin daily. Follow-up with your primary care provider if symptoms are not improving or worsen. Return to emergency department immediately for chest pain associated with sweating, nausea or vomiting, or weakness. Call Dr. Ruiz's office for follow-up on Friday. All discharge instructions reviewed with patient and/or family. Voiced understanding. Scripts Alprazolam (Xanax) 0.25 Mg Tablet 0.25 MG PO Q8H, #12 TAB 0 Refills Prov: JOSIAS MOMIN 04/24/18 Copy Copies To 1: OSCAR PACK DO Copies To 2: ANT RUIZ MD, AMY ARNP Apr 24, 2018 21:59
[2018-04-24] MEDS ORDERED: ALPR0.25 PO (22:57)
[2018-04-24 23:00] VITALS: BP 141/50
[2018-04-24] MEDS ORDERED: ALPRAZolam 0.25 MG (XANAX) TAB ONE (23:00)
== END 2018-04-24 23:03 | disposition home or self-care (01) ==
LOC: EDUNIT# 20:41 → ER 20:43
DX: R07.89 Other chest pain (principal); J45.909 Unspecified asthma, uncomplicated; E78.00 Pure hypercholesterolemia, unspecified; I10 Essential (primary) hypertension; G43.909 Migraine, unspecified, not intractable, without status migrainosus; K21.9 Gastro-esophageal reflux disease without esophagitis; E11.9 Type 2 diabetes mellitus without complications; F41.9 Anxiety disorder, unspecified; F32.9 Major depressive disorder, single episode, unspecified; Z80.3 Family history of malignant neoplasm of breast; Z80.41 Family history of malignant neoplasm of ovary; Z87.19 Personal history of other diseases of the digestive system; Z86.73 Personal history of transient ischemic attack (TIA), and cerebral infarction without residual deficits; Z88.2 Allergy status to sulfonamides; Z79.82 Long term (current) use of aspirin; Z79.51 Long term (current) use of inhaled steroids; Z79.84 Long term (current) use of oral hypoglycemic drugs; Z90.710 Acquired absence of both cervix and uterus
CPT/HCPCS: 36415; 71046; 80053; 83735; 83874; 84484; 85025; 85610; 85730; 93005; 93041

== ENCOUNTER 2019-05-14 13:11 | Emergency (ER) | payer MEDICARE, OTHER ==
[~2019-05-14] VITALS: Ht 157.5 cm; Wt 89.4 kg
[~2019-05-14 13:11] MED LIST changes: +ALPR0.25 PO; -AMLO10TA2 PO; +AMLO10TA7 PO; -AMLO5TAB2 PO; +AMLO5TAB9 PO; +METF-399 PO; -METF10002 PO
--- OUTSIDE RECORDS SUMMARY | 2019-05-14 13:21 | XMS REPORT | Continuity of Care Document ---
Demographics Preferred Language Unknown Marital Status Unknown Caodaism Affiliation Unknown Race Unknown Ethnic Group Unknown Author Organization Unknown Address Unknown Allergies Active Description Code Type Severity Reaction Onset Reported/Identified Relationship to Patient Clinical Status Yes No Known Drug Allergies [id number] Drug Allergy Unknown N/A 06/08/2016 Yes Sulfa (Sulfonamide Antibiotics) [id number] Drug Allergy Unknown N/A 06/08/2016 Yes Sulfa (Sulfonamide Antibiotics) [id number] Drug Allergy Mild RASH 08/28/2017 Medications There is no data. Problems Date Dx Coded Attending Type Code [...] SCREEN MAMMOGRAM FOR MALIGNANT NE 05/30/2016 OSCAR PCAK DO Ot Z78.0 ASYMPTOMATIC MENOPAUSAL STATE 06/08/2016 [...] TYPE 2 DIABETES MELLITUS WITHOUT COMPLIC 06/09/2016 ASCENCION KIRKPATRICK MD Ot E78.5 HYPERLIPIDEMIA, UNSPECIFIED 06/09/2016 ASCENCION KIRKPATRICK MD Ot I10 ESSENTIAL (PRIMARY) HYPERTENSION 06/09/2016 ASCENCION KIRKPATRICK MD Ot I63.9 CEREBRAL INFARCTION, UNSPECIFIED 06/09/2016 ASCENCION KIRKPATRICK MD Ot M62.81 MUSCLE WEAKNESS (GENERALIZED) 06/09/2016 ASCENCION KIRKPATRICK MD Ot R20.2 PARESTHESIA OF SKIN 06/09/2016 ASCENCION KIRKPATRICK MD Ot R27.0 ATAXIA, UNSPECIFIED 06/09/2016 ASCENCION KIRKPATRICK MD Ot R29.810 FACIAL WEAKNESS 06/09/2016 ASCENCION KIRKPATRICK MD Ot 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 06/13/2016 Ot [...] DO Ot Z78.0 ASYMPTOMATIC MENOPAUSAL STATE 07/11/2016 OSCRA PACK DO Ot Z09 ENCNTR FOR F/U [...] 424.1 AORTIC VALVE DISORDER 10/30/2016 OSCAR PACK DO, Ot Z12.31 ENCNTR SCREEN MAMMOGRAM FOR MALIGNANT NE 10/30/2016 OSCAR PACK DO Ot Z78.0 ASYMPTOMATIC MENOPAUSAL STATE 12/01/2016 Ot 721.3 LUMBOSACRAL SPONDYLOSIS 12/01/2016 OSCAR PACK DO Ot 424.1 AORTIC VALVE DISORDER 12/01/2016 OSCAR PACK DO Ot Z12.31 ENCNTR SCREEN MAMMOGRAM FOR MALIGNANT NE 12/01/2016 OSCAR PACK DO Ot Z78.0 ASYMPTOMATIC MENOPAUSAL STATE 12/02/2016 ASCENCION KIRKPATRICK MD Ot E11.9 TYPE 2 DIABETES MELLITUS WITHOUT COMPLIC 12/02/2016 ASCENCION KIRKPATRICK MD Ot E66.9 OBESITY, UNSPECIFIED 12/02/2016 ASCENCION KIRKPATRICK MD Ot E78.5 HYPERLIPIDEMIA, UNSPECIFIED 12/02/2016 ASCENCION KIRKPATRICK MD Ot I10 ESSENTIAL (PRIMARY) HYPERTENSION 12/02/2016 ASCENCION KIRKPATRICK MD Ot I16.1 HYPERTENSIVE EMERGENCY 12/02/2016 ASCENCION KIRKPATRICK MD Ot I25.10 ATHSCL HEART DISEASE OF [place] CORONARY 12/02/2016 ASCENCION KIRKPATRICK MD Ot I49.5 SICK SINUS SYNDROME 12/02/2016 ASCENCION KIRKPATRICK MD Ot I65.23 OCCLUSION AND STENOSIS OF BILATERAL [place] 12/02/2016 ASCENCION KIRKPATRICK MD Ot R07.89 OTHER CHEST PAIN 12/02/2016 ASCENCION KIRKPATRICK MD Ot Z68.36 BODY MASS INDEX (BMI) 36.0-36.9, ADULT 12/02/2016 ASCENCION KIRKPATRICK MD Ot Z79.84 INTERMEDIATE (CURRENT) USE OF ORAL HYPOGLYC 12/02/2016 Ot [...] Ot I63.9 CEREBRAL INFARCTION, UNSPECIFIED 12/06/2016 RASHIDA MCCORD, ANT Rider Ot R00.1 BRADYCARDIA, UNSPECIFIED 12/06/2016 ANT FIELD MD Ot R07.89 OTHER CHEST PAIN 12/18/2016 Ot 721.3 LUMBOSACRAL SPONDYLOSIS 12/18/2016 OSCAR PACK DO Ot 424.1 AORTIC VALVE DISORDER 12/18/2016 OSCAR PACK DO Ot Z12.31 ENCNTR SCREEN MAMMOGRAM FOR MALIGNANT NE 12/18/2016 OSCAR PACK DO Ot Z78.0 ASYMPTOMATIC MENOPAUSAL STATE 12/18/2016 ANT FIELD MD Ot I10 ESSENTIAL (PRIMARY) HYPERTENSION 12/18/2016 ANT FIELD MD Ot I63.9 CEREBRAL INFARCTION, UNSPECIFIED 12/18/2016 ANT FIELD MD Ot R00.1 BRADYCARDIA, UNSPECIFIED 12/18/2016 ANT FIELD MD Ot R07.89 OTHER CHEST PAIN 12/22/2016 IAIN JONES Ot I10 ESSENTIAL (PRIMARY) HYPERTENSION 12/22/2016 IAIN JONES Ot I16.1 HYPERTENSIVE EMERGENCY 12/22/2016 IAIN JONES Ot 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 12/22/2016 IAIN JONES Ot I63.9 CEREBRAL INFARCTION, UNSPECIFIED 01/09/2017 ANT FIELD MD Ot I10 ESSENTIAL (PRIMARY) HYPERTENSION 01/09/2017 ANT FIELD MD Ot 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 01/09/2017 ANT FIELD MD Ot I49.5 SICK SINUS SYNDROME 01/09/2017 ANT FIELD MD Ot I63.9 CEREBRAL INFARCTION, UNSPECIFIED 01/09/2017 ANT FIELD MD Ot R00.2 PALPITATIONS 01/09/2017 ANT FIELD MD Ot Z79.899 OTHER TENNIS PLAYER (CURRENT) DRUG THERAPY 01/09/2017 IAIN JONES Ot I10 ESSENTIAL (PRIMARY) HYPERTENSION 01/09/2017 IAIN JONES Ot I16.1 HYPERTENSIVE EMERGENCY 01/09/2017 IAIN JONES Ot 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 01/09/2017 IAIN JONES Ot I63.9 CEREBRAL INFARCTION, UNSPECIFIED 01/15/2017 EDY BLOUNT MD Ot J32.9 CHRONIC SINUSITIS, UNSPECIFIED 01/15/2017 ANT FIELD MD Ot I10 ESSENTIAL (PRIMARY) HYPERTENSION 01/15/2017 ANT FIELD MD Ot I63.9 CEREBRAL INFARCTION, UNSPECIFIED 01/15/2017 ANT FIELD MD Ot R00.1 BRADYCARDIA, UNSPECIFIED 01/15/2017 ANT FIELD MD Ot R07.89 OTHER CHEST PAIN 01/16/2017 EDY BLOUNT MD Ot J32.9 CHRONIC SINUSITIS, UNSPECIFIED 01/29/2017 ANT FIELD MD Ot I10 ESSENTIAL (PRIMARY) HYPERTENSION 01/29/2017 ANT FIELD MD Ot 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 01/29/2017 ANT FIELD MD Ot I49.5 SICK SINUS SYNDROME 01/29/2017 ANT FIELD MD Ot I63.9 CEREBRAL INFARCTION, UNSPECIFIED 01/29/2017 ANT FIELD MD Ot R00.2 PALPITATIONS 01/29/2017 ANT FIELD MD Ot Z79.899 OTHER INTERMEDIATE (CURRENT) DRUG THERAPY 01/30/2017 IAIN JONES Ot I10 ESSENTIAL (PRIMARY) HYPERTENSION 01/30/2017 IAIN JONES Ot I16.1 HYPERTENSIVE EMERGENCY 01/30/2017 IAIN JONES Ot 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 01/30/2017 IAIN JONES Ot I63.9 CEREBRAL INFARCTION, UNSPECIFIED 02/06/2017 EDY BLOUNT MD Ot J32.9 CHRONIC SINUSITIS, UNSPECIFIED 04/09/2017 ANT FIELD MD Ot I10 ESSENTIAL (PRIMARY) HYPERTENSION 04/09/2017 ANT FIELD MD Ot 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 04/09/2017 ANT FIELD MD Ot I49.5 SICK SINUS SYNDROME 04/09/2017 ANT FIELD MD Ot I63.9 CEREBRAL INFARCTION, UNSPECIFIED 04/09/2017 ANT FIELD MD Ot R00.2 PALPITATIONS 04/09/2017 ANT FIELD MD Ot Z79.899 OTHER INTERMEDIATE (CURRENT) DRUG THERAPY 04/10/2017 EDY BLOUNT MD Ot J32.9 CHRONIC SINUSITIS, UNSPECIFIED 06/12/2017 OSCAR PACK DO Ot 424.1 AORTIC VALVE DISORDER 06/12/2017 OSCAR PACK DO Ot Z12.31 ENCNTR SCREEN MAMMOGRAM FOR MALIGNANT NE 06/12/2017 OSCAR PACK DO Ot Z78.0 ASYMPTOMATIC MENOPAUSAL STATE 06/12/2017 ANT FIELD MD Ot I10 ESSENTIAL (PRIMARY) HYPERTENSION 06/12/2017 ANT FIELD MD Ot I63.9 CEREBRAL INFARCTION, UNSPECIFIED 06/12/2017 ANT FIELD MD Ot R00.1 BRADYCARDIA, UNSPECIFIED 06/12/2017 ANT FIELD MD Ot R07.89 OTHER CHEST PAIN 06/12/2017 ANT FIELD MD Ot I10 ESSENTIAL (PRIMARY) HYPERTENSION 06/12/2017 ANT FIELD MD Ot 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 06/12/2017 ANT FIELD MD Ot I49.5 SICK SINUS SYNDROME 06/12/2017 ANT FIELD MD Ot I63.9 CEREBRAL INFARCTION, UNSPECIFIED 06/12/2017 ANT FIELD MD Ot R00.2 PALPITATIONS 06/12/2017 ANT FIELD MD Ot Z79.899 OTHER INTERMEDIATE (CURRENT) DRUG THERAPY 06/12/2017 IAIN JONES Ot I10 ESSENTIAL (PRIMARY) HYPERTENSION 06/12/2017 IAIN JONES Ot I16.1 HYPERTENSIVE EMERGENCY 06/12/2017 IAIN JONES Ot 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 06/12/2017 IAIN JONES Ot I63.9 CEREBRAL INFARCTION, UNSPECIFIED 06/12/2017 EDY BLOUNT MD Ot J32.9 CHRONIC SINUSITIS, UNSPECIFIED 07/02/2017 OSCAR PACK DO Ot 424.1 AORTIC VALVE DISORDER 07/02/2017 OSCAR PACK DO Ot Z12.31 ENCNTR SCREEN MAMMOGRAM FOR MALIGNANT NE 07/02/2017 OSCAR PACK DO Ot Z78.0 ASYMPTOMATIC MENOPAUSAL STATE 07/02/2017 ANT FIELD MD Ot I10 ESSENTIAL (PRIMARY) HYPERTENSION 07/02/2017 ANT FIELD MD Ot I63.9 CEREBRAL INFARCTION, UNSPECIFIED 07/02/2017 ANT FIELD MD Ot R00.1 BRADYCARDIA, UNSPECIFIED 07/02/2017 ANT FIELD MD Ot R07.89 OTHER CHEST PAIN 07/02/2017 ANT FIELD MD Ot I10 ESSENTIAL (PRIMARY) HYPERTENSION 07/02/2017 ANT FIELD MD Ot 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 07/02/2017 ANT FIELD MD Ot I49.5 SICK SINUS SYNDROME 07/02/2017 ANT FIELD MD Ot I63.9 CEREBRAL INFARCTION, UNSPECIFIED 07/02/2017 ANT FIELD MD Ot R00.2 PALPITATIONS 07/02/2017 ANT FIELD MD Ot Z79.899 OTHER TENNIS PLAYER (CURRENT) DRUG THERAPY 07/02/2017 AIIN JONES Ot I10 ESSENTIAL (PRIMARY) HYPERTENSION 07/02/2017 IAIN JONES Ot I16.1 HYPERTENSIVE EMERGENCY 07/02/2017 IAIN JONES Ot 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 07/02/2017 IAIN JONES Ot I63.9 CEREBRAL INFARCTION, UNSPECIFIED 07/02/2017 JOSE ALEJANDRO MCCORD, EDY Florez Ot J32.9 CHRONIC SINUSITIS, UNSPECIFIED 07/03/2017 OSCAR PACK DO Ot 424.1 AORTIC VALVE DISORDER 07/03/2017 OSCAR PACK DO Ot Z12.31 ENCNTR SCREEN MAMMOGRAM FOR MALIGNANT NE 07/03/2017 OSCAR PACK DO Ot Z78.0 ASYMPTOMATIC MENOPAUSAL STATE 07/03/2017 ANT FIELD MD Ot I10 ESSENTIAL (PRIMARY) HYPERTENSION 07/03/2017 ANT FIELD MD Ot I63.9 CEREBRAL INFARCTION, UNSPECIFIED 07/03/2017 ANT FIELD MD Ot R00.1 BRADYCARDIA, UNSPECIFIED 07/03/2017 ANT FIELD MD Ot R07.89 OTHER CHEST PAIN 07/03/2017 ANT FIELD MD Ot I10 ESSENTIAL (PRIMARY) HYPERTENSION 07/03/2017 ANT FIELD MD Ot 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 07/03/2017 ANT FIELD MD Ot I49.5 SICK SINUS SYNDROME 07/03/2017 ANT FIELD MD Ot I63.9 CEREBRAL INFARCTION, UNSPECIFIED 07/03/2017 ANT FIELD MD Ot R00.2 PALPITATIONS 07/03/2017 ANT FIELD MD Ot Z79.899 OTHER TENNIS PLAYER (CURRENT) DRUG THERAPY 07/03/2017 IAIN JONES Ot I10 ESSENTIAL (PRIMARY) HYPERTENSION 07/03/2017 IAIN JONES Ot I16.1 HYPERTENSIVE EMERGENCY 07/03/2017 IAIN JONES Ot 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 07/03/2017 IAIN JONES Ot I63.9 CEREBRAL INFARCTION, UNSPECIFIED 07/03/2017 EDY BLOUNT MD Ot J32.9 CHRONIC SINUSITIS, UNSPECIFIED 08/21/2017 OSCAR PACK DO Ot 424.1 AORTIC VALVE DISORDER 08/21/2017 OSCAR PACK DO Ot Z12.31 ENCNTR SCREEN MAMMOGRAM FOR MALIGNANT NE 08/21/2017 OSCAR PACK DO Ot Z78.0 ASYMPTOMATIC MENOPAUSAL STATE 08/21/2017 ANT FIELD MD Ot I10 ESSENTIAL (PRIMARY) HYPERTENSION 08/21/2017 ANT FIELD MD Ot I63.9 CEREBRAL INFARCTION, UNSPECIFIED 08/21/2017 ANT FIELD MD Ot R00.1 BRADYCARDIA, UNSPECIFIED 08/21/2017 ANT FIELD MD Ot R07.89 OTHER CHEST PAIN 08/21/2017 ANT FIELD MD Ot I10 ESSENTIAL (PRIMARY) HYPERTENSION 08/21/2017 ANT FIELD MD Ot 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 08/21/2017 ANT FIELD MD Ot I49.5 SICK SINUS SYNDROME 08/21/2017 ANT FIELD MD Ot I63.9 CEREBRAL INFARCTION, UNSPECIFIED 08/21/2017 ANT FIELD MD Ot R00.2 PALPITATIONS 08/21/2017 ANT FIELD MD Ot Z79.899 OTHER INTERMEDIATE (CURRENT) DRUG THERAPY 08/21/2017 IAIN JONES Ot I10 ESSENTIAL (PRIMARY) HYPERTENSION 08/21/2017 IAIN JONES Ot I16.1 HYPERTENSIVE EMERGENCY 08/21/2017 IAIN JONES Ot 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 08/21/2017 IAIN JONES Ot I63.9 CEREBRAL INFARCTION, UNSPECIFIED 08/21/2017 JOSE ALEJANDRO MCCORD, EDY Florez Ot J32.9 CHRONIC SINUSITIS, UNSPECIFIED 08/24/2017 OSCAR PACK DO Ot 424.1 AORTIC VALVE DISORDER 08/24/2017 OSCAR PACK DO Ot Z12.31 ENCNTR SCREEN MAMMOGRAM FOR MALIGNANT NE 08/24/2017 OSCAR PACK DO Ot Z78.0 ASYMPTOMATIC MENOPAUSAL STATE 08/24/2017 ANT FIELD MD Ot I10 ESSENTIAL (PRIMARY) HYPERTENSION 08/24/2017 ANT FIELD MD Ot I63.9 CEREBRAL INFARCTION, UNSPECIFIED 08/24/2017 ANT FEILD MD Ot R00.1 BRADYCARDIA, UNSPECIFIED 08/24/2017 ANT FIELD MD Ot R07.89 OTHER CHEST PAIN 08/24/2017 ANT FIELD MD Ot I10 ESSENTIAL (PRIMARY) HYPERTENSION 08/24/2017 ANT FIELD MD Ot 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 08/24/2017 ANT FIELD MD Ot I49.5 SICK SINUS SYNDROME 08/24/2017 ANT FIELD MD Ot I63.9 CEREBRAL INFARCTION, UNSPECIFIED 08/24/2017 ANT FIELD MD Ot R00.2 PALPITATIONS 08/24/2017 ANT FIELD MD Ot Z79.899 OTHER INTERMEDIATE (CURRENT) DRUG THERAPY 08/24/2017 IAIN JONES Ot I10 ESSENTIAL (PRIMARY) HYPERTENSION 08/24/2017 IAIN JONES Ot I16.1 HYPERTENSIVE EMERGENCY 08/24/2017 IAIN JONES Ot 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 08/24/2017 IAIN JONES Ot I63.9 CEREBRAL INFARCTION, UNSPECIFIED 08/24/2017 JOSE ALEJANDRO MCCORD, EDY Florez Ot J32.9 CHRONIC SINUSITIS, UNSPECIFIED 08/24/2017 OSCAR PACK DO Ot R10.13 EPIGASTRIC PAIN 08/24/2017 KELBY GRUBER MD Ot E11.9 TYPE 2 DIABETES MELLITUS WITHOUT COMPLIC 08/24/2017 KELBY GRUBER MD Ot E78.00 PURE HYPERCHOLESTEROLEMIA, UNSPECIFIED 08/24/2017 KELBY GRUBER MD Ot I10 ESSENTIAL (PRIMARY) HYPERTENSION 08/24/2017 KELBY GRUBER MD Ot J45.909 UNSPECIFIED ASTHMA, UNCOMPLICATED 08/24/2017 KELBY GRUBER MD, Ot K81.9 CHOLECYSTITIS, UNSPECIFIED 08/24/2017 KELBY GRUBER MD Ot M54.5 LOW BACK PAIN 08/24/2017 KELBY GRUBER MD Ot Z79.82 TENNIS PLAYER (CURRENT) USE OF ASPIRIN 08/24/2017 KELBY GRUBER MD Ot Z79.84 INTERMEDIATE (CURRENT) USE OF ORAL HYPOGLYC 08/24/2017 KELBY GRUBER MD Ot Z87.891 PERSONAL HISTORY OF NICOTINE DEPENDENCE 08/27/2017 OSCAR PACK DO Ot 424.1 AORTIC VALVE DISORDER 08/27/2017 OSCAR PACK DO Ot Z12.31 ENCNTR SCREEN MAMMOGRAM FOR MALIGNANT NE 08/27/2017 OSCAR PACK DO Ot Z78.0 ASYMPTOMATIC MENOPAUSAL STATE 08/27/2017 ANT FIELD MD Ot I10 ESSENTIAL (PRIMARY) HYPERTENSION 08/27/2017 ANT FIELD MD Ot I63.9 CEREBRAL INFARCTION, UNSPECIFIED 08/27/2017 ANT FIELD MD Ot R00.1 BRADYCARDIA, UNSPECIFIED 08/27/2017 ANT FIELD MD Ot R07.89 OTHER CHEST PAIN 08/27/2017 ANT FIELD MD Ot I10 ESSENTIAL (PRIMARY) HYPERTENSION 08/27/2017 ANT FIELD MD Ot 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 08/27/2017 ANT FIELD MD Ot I49.5 SICK SINUS SYNDROME 08/27/2017 ANT FIELD MD Ot I63.9 CEREBRAL INFARCTION, UNSPECIFIED 08/27/2017 RASHIDA MCCORD, ANT Rider Ot R00.2 PALPITATIONS 08/27/2017 RASHIDA MCCORD, ANT Rider Ot Z79.899 OTHER TENNIS PLAYER (CURRENT) DRUG THERAPY 08/27/2017 IAIN JONES Ot I10 ESSENTIAL (PRIMARY) HYPERTENSION 08/27/2017 IAIN JONES Ot I16.1 HYPERTENSIVE EMERGENCY 08/27/2017 IAIN JONES Ot 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 08/27/2017 IAIN JONES Ot I63.9 CEREBRAL INFARCTION, UNSPECIFIED 08/27/2017 JOSE ALEJANDRO MCCORD, EDY Florez Ot J32.9 CHRONIC SINUSITIS, UNSPECIFIED 08/27/2017 OSCAR PACK DO, Ot R10.13 EPIGASTRIC PAIN 08/28/2017 MERNA DURAN DO Ot K80.20 CALCULUS OF GALLBLADDER W/O CHOLECYSTITI 08/28/2017 MERNA DURAN DO Ot Z01.818 ENCOUNTER FOR OTHER PREPROCEDURAL EXAMIN 09/04/2017 MERNA DURAN DO Ot E11.9 TYPE 2 DIABETES MELLITUS WITHOUT COMPLIC 09/04/2017 MERNA DURAN DO, Ot F32.9 MAJOR DEPRESSIVE DISORDER, SINGLE EPISOD 09/04/2017 MERNA DURAN DO, Ot F41.9 ANXIETY DISORDER, UNSPECIFIED 09/04/2017 MERNA DURAN DO Ot I10 ESSENTIAL (PRIMARY) HYPERTENSION 09/04/2017 MERNA DURAN DO, Ot J45.909 UNSPECIFIED ASTHMA, UNCOMPLICATED 09/04/2017 MERNA DURAN DO Ot K80.10 CALCULUS OF GALLBLADDER W CHRONIC CHOLEC 09/04/2017 MERNA DURAN DO Ot Z79.82 TENNIS PLAYER (CURRENT) USE OF ASPIRIN 09/04/2017 MERNA DURAN DO, Ot Z79.84 TENNIS PLAYER (CURRENT) USE OF ORAL HYPOGLYC 09/04/2017 MERNA DURAN DO, Ot Z79.899 OTHER INTERMEDIATE (CURRENT) DRUG THERAPY 09/04/2017 MERNA DURAN DO Ot Z86.73 PRSNL HX OF TIA (TIA), AND CEREB INFRC W 09/15/2017 OSCAR PACK DO Ot R10.13 EPIGASTRIC PAIN 09/18/2017 MERNA DURAN DO Ot E11.9 TYPE 2 DIABETES MELLITUS WITHOUT COMPLIC 09/18/2017 MERNA DURAN DO Ot F32.9 MAJOR DEPRESSIVE DISORDER, SINGLE EPISOD 09/18/2017 MERNA DURAN DO Ot F41.9 ANXIETY DISORDER, UNSPECIFIED 09/18/2017 MERNA DURAN DO Ot I10 ESSENTIAL (PRIMARY) HYPERTENSION 09/18/2017 MERNA DURAN DO Ot J45.909 UNSPECIFIED ASTHMA, UNCOMPLICATED 09/18/2017 MERNA DURAN DO Ot K80.10 CALCULUS OF GALLBLADDER W CHRONIC CHOLEC 09/18/2017 MERNA DURAN DO Ot Z79.82 TENNIS PLAYER (CURRENT) USE OF ASPIRIN 09/18/2017 MERNA DURAN DO Ot Z79.84 INTERMEDIATE (CURRENT) USE OF ORAL HYPOGLYC 09/18/2017 MERNA DURAN DO Ot Z79.899 OTHER TENNIS PLAYER (CURRENT) DRUG THERAPY 09/18/2017 MERNA DURAN DO, Ot Z86.73 PRSNL HX OF TIA (TIA), AND CEREB INFRC W 10/06/2017 OSCAR PACK DO Ot R10.13 EPIGASTRIC PAIN 11/10/2017 OSCAR PACK DO Ot 424.1 AORTIC VALVE DISORDER 11/10/2017 OSCAR PACK DO Ot Z12.31 ENCNTR SCREEN MAMMOGRAM FOR MALIGNANT NE 11/10/2017 OSCAR PACK DO Ot Z78.0 ASYMPTOMATIC MENOPAUSAL STATE 11/10/2017 ANT FIELD MD Ot I10 ESSENTIAL (PRIMARY) HYPERTENSION 11/10/2017 ANT FIELD MD Ot I63.9 CEREBRAL INFARCTION, UNSPECIFIED 11/10/2017 ANT FIELD MD Ot R00.1 BRADYCARDIA, UNSPECIFIED 11/10/2017 ANT FIELD MD Ot R07.89 OTHER CHEST PAIN 11/10/2017 ANT FIELD MD Ot I10 ESSENTIAL (PRIMARY) HYPERTENSION 11/10/2017 ANT FIELD MD Ot 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 11/10/2017 ANT FIELD MD Ot I49.5 SICK SINUS SYNDROME 11/10/2017 ANT FIELD MD Ot I63.9 CEREBRAL INFARCTION, UNSPECIFIED 11/10/2017 RASHIDA MCCORD, ANT Rider Ot R00.2 PALPITATIONS 11/10/2017 RASHIDA MCCORD, ANT Rider Ot Z79.899 OTHER TENNIS PLAYER (CURRENT) DRUG THERAPY 11/10/2017 IAIN JONES Ot I10 ESSENTIAL (PRIMARY) HYPERTENSION 11/10/2017 IAIN JONES Ot I16.1 HYPERTENSIVE EMERGENCY 11/10/2017 IAIN JONES Ot 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 11/10/2017 IAIN JONES Ot I63.9 CEREBRAL INFARCTION, UNSPECIFIED 11/10/2017 JOSE ALEJANDRO MCCORD, EDY Florez Ot J32.9 CHRONIC SINUSITIS, UNSPECIFIED 11/10/2017 OSCAR PACK DO Ot R10.13 EPIGASTRIC PAIN 04/17/2018 OSCAR PACK DO Ot M85.88 OT DISRD OF BONE DENSITY AND STRUCTURE, 04/17/2018 OSCAR PACK DO Ot N95.9 UNSPECIFIED MENOPAUSAL AND PERIMENOPAUSA 04/17/2018 OSCAR PACK DO Ot Z12.31 ENCNTR SCREEN MAMMOGRAM FOR MALIGNANT NE 04/22/2018 OSCAR PACK DO Ot M85.88 OT DISRD OF BONE DENSITY AND STRUCTURE, 04/22/2018 OSCAR PACK DO Ot N95.9 UNSPECIFIED MENOPAUSAL AND PERIMENOPAUSA 04/22/2018 OSCAR PACK DO Ot Z12.31 ENCNTR SCREEN MAMMOGRAM FOR MALIGNANT NE 04/24/2018 OSCAR PACK DO Ot 424.1 AORTIC VALVE DISORDER 04/24/2018 OSCAR PACK DO, Ot Z12.31 ENCNTR SCREEN MAMMOGRAM FOR MALIGNANT NE 04/24/2018 OSCAR PACK DO Ot Z78.0 ASYMPTOMATIC MENOPAUSAL STATE 04/24/2018 ANT FIELD MD Ot I10 ESSENTIAL (PRIMARY) HYPERTENSION 04/24/2018 ANT FIELD MD Ot I63.9 CEREBRAL INFARCTION, UNSPECIFIED 04/24/2018 ANT FIELD MD Ot R00.1 BRADYCARDIA, UNSPECIFIED 04/24/2018 ANT FIELD MD Ot R07.89 OTHER CHEST PAIN 04/24/2018 RASHIDA MCCORD, ANT Rider Ot I10 ESSENTIAL (PRIMARY) HYPERTENSION 04/24/2018 RASHIDA MCCORD, ANT Rider Ot 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 04/24/2018 ANT FIELD MD Ot I49.5 SICK SINUS SYNDROME 04/24/2018 ANT FIELD MD Ot I63.9 CEREBRAL INFARCTION, UNSPECIFIED 04/24/2018 RASHIDA MCCORD, ANT Rider Ot R00.2 PALPITATIONS 04/24/2018 ANT FIELD MD Ot Z79.899 OTHER INTERMEDIATE (CURRENT) DRUG THERAPY 04/24/2018 IAIN JONES Ot I10 ESSENTIAL (PRIMARY) HYPERTENSION 04/24/2018 IAIN JONES Ot I16.1 HYPERTENSIVE EMERGENCY 04/24/2018 IAIN JONES Ot 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 04/24/2018 IAIN JONES Ot I63.9 CEREBRAL INFARCTION, UNSPECIFIED 04/24/2018 JOSE ALEJANDRO MCCORD, EDY Florez Ot J32.9 CHRONIC SINUSITIS, UNSPECIFIED 04/24/2018 OSCAR PACK DO Ot R10.13 EPIGASTRIC PAIN 04/24/2018 OSCAR PACK DO Ot M85.88 OTH DISRD OF BONE DENSITY AND STRUCTURE, 04/24/2018 OSCAR PACK DO Ot N95.9 UNSPECIFIED MENOPAUSAL AND PERIMENOPAUSA 04/24/2018 OSCAR PACK DO Ot Z12.31 ENCNTR SCREEN MAMMOGRAM FOR MALIGNANT NE 04/24/2018 JOSIAS MOMIN Ot E11.9 TYPE 2 DIABETES MELLITUS WITHOUT COMPLIC 04/24/2018 JOSIAS MOMINP Ot E78.00 PURE HYPERCHOLESTEROLEMIA, UNSPECIFIED 04/24/2018 LILIANE, JOSIAS SALES AMBASSADOR Ot F32.9 MAJOR DEPRESSIVE DISORDER, SINGLE EPISOD 04/24/2018 JOSIAS MOMIN SALES AMBASSADOR Ot F41.9 ANXIETY DISORDER, UNSPECIFIED 04/24/2018 LILIANE JOSIAS SALES AMBASSADOR Ot G43.909 MIGRAINE, UNSP, NOT INTRACTABLE, WITHOUT 04/24/2018 LILIANE, JOSIAS SALES AMBASSADOR Ot I10 ESSENTIAL (PRIMARY) HYPERTENSION 04/24/2018 LILIANE JOSIAS SALES AMBASSADOR Ot J45.909 UNSPECIFIED ASTHMA, UNCOMPLICATED 04/24/2018 LILIANEJOSIAS Veloz SALES AMBASSADOR Ot K21.9 GASTRO- ESOPHAGEAL REFLUX DISEASE WITHOUT 04/24/2018 LILIANE, JOSIAS SALES AMBASSADOR Ot R07.89 OTHER CHEST PAIN 04/24/2018 LILIANE JOSIAS SALES AMBASSADOR Ot Z79.51 TENNIS PLAYER (CURRENT) USE OF INHALED STERO 04/24/2018 JOSIAS MOMIN SALES AMBASSADOR Ot Z79.82 INTERMEDIATE (CURRENT) USE OF ASPIRIN 04/24/2018 JOSIAS MOMIN SALES AMBASSADOR Ot Z79.84 INTERMEDIATE (CURRENT) USE OF ORAL HYPOGLYC 04/24/2018 LILIANE, JOSIAS SALES AMBASSADOR Ot Z80.3 FAMILY HISTORY OF MALIGNANT NEOPLASM OF 04/24/2018 LILIANE, JOSIAS SALES AMBASSADOR Ot Z80.41 FAMILY HISTORY OF MALIGNANT NEOPLASM OF 04/24/2018 LILIANEJOSIAS Veloz SALES AMBASSADOR Ot Z86.73 PRSNL HX OF TIA (TIA), AND CEREB INFRC W 04/24/2018 LILIANEJOSIAS Veloz SALES AMBASSADOR Ot Z87.19 PERSONAL HISTORY OF OTHER DISEASES OF 04/24/2018 JOSIAS MOMIN SALES AMBASSADOR Ot Z88.2 ALLERGY STATUS TO SULFONAMIDES STATUS 04/24/2018 LILIANE JOSIAS SALES AMBASSADOR Ot Z90.710 ACQUIRED ABSENCE OF BOTH CERVIX AND UTER 04/27/2018 LILIANE, JOSIAS SALES AMBASSADOR Ot E11.9 TYPE 2 DIABETES MELLITUS WITHOUT COMPLIC 04/27/2018 LILIANE JOSIAS SALES AMBASSADOR Ot E78.00 PURE HYPERCHOLESTEROLEMIA, UNSPECIFIED 04/27/2018 LILIANE JOSIAS SALES AMBASSADOR Ot F32.9 MAJOR DEPRESSIVE DISORDER, SINGLE EPISOD 04/27/2018 LILIANE JOSIAS SALES AMBASSADOR Ot F41.9 ANXIETY DISORDER, UNSPECIFIED 04/27/2018 LILIANE JOSIAS SALES AMBASSADOR Ot G43.909 MIGRAINE, UNSP, NOT INTRACTABLE, WITHOUT 04/27/2018 LILIANE, JOSIAS SALES AMBASSADOR Ot I10 ESSENTIAL (PRIMARY) HYPERTENSION 04/27/2018 LILIANE JOSIAS SALES AMBASSADOR Ot J45.909 UNSPECIFIED ASTHMA, UNCOMPLICATED 04/27/2018 LILIANE JOSIAS SALES AMBASSADOR Ot K21.9 GASTRO- ESOPHAGEAL REFLUX DISEASE WITHOUT 04/27/2018 LILIANE, JOSIAS SALES AMBASSADOR Ot R07.89 OTHER CHEST PAIN 04/27/2018 JOSIAS MOMIN SALES AMBASSADOR Ot Z79.51 INTERMEDIATE (CURRENT) USE OF INHALED STERO 04/27/2018 LILIANE JOSIAS SALES AMBASSADOR Ot Z79.82 INTERMEDIATE (CURRENT) USE OF ASPIRIN 04/27/2018 LILIANE JOSIAS ARMENDARIZ Ot Z79.84 INTERMEDIATE (CURRENT) USE OF ORAL HYPOGLYC 04/27/2018 LILIANE JOSIAS ARMENDARIZ Ot Z80.3 FAMILY HISTORY OF MALIGNANT NEOPLASM OF 04/27/2018 LILIANE JOSIAS ARMENDARIZ Ot Z80.41 FAMILY HISTORY OF MALIGNANT NEOPLASM OF 04/27/2018 LILIANE JOSIAS SALES AMBASSADOR Ot Z86.73 PRSNL HX OF TIA (TIA), AND CEREB INFRC W 04/27/2018 LILIANE JOSIAS ARMENDARIZ Ot Z87.19 PERSONAL HISTORY OF OTHER DISEASES OF 04/27/2018 LILIANE JOSIAS ARMENDARIZ Ot Z88.2 ALLERGY STATUS TO SULFONAMIDES STATUS 04/27/2018 LILIANE JOSIAS ARMENDARIZ Ot Z90.710 ACQUIRED ABSENCE OF BOTH CERVIX AND UTER 05/06/2018 OSCAR PACK DO, Ot M85.88 OTH DISRD OF BONE DENSITY AND STRUCTURE, 05/06/2018 OSCAR PACK DO Ot N95.9 UNSPECIFIED MENOPAUSAL AND PERIMENOPAUSA 05/06/2018 OSCAR PACK DO, Ot Z12.31 ENCNTR SCREEN MAMMOGRAM FOR MALIGNANT NE 06/09/2018 OSCAR PACK DO Ot 424.1 AORTIC VALVE DISORDER 06/09/2018 OSCAR PACK DO, Ot Z12.31 ENCNTR SCREEN MAMMOGRAM FOR MALIGNANT NE 06/09/2018 OSCAR PACK DO, Ot Z78.0 ASYMPTOMATIC MENOPAUSAL STATE 06/09/2018 ANT FIELD MD Ot I10 ESSENTIAL (PRIMARY) HYPERTENSION 06/09/2018 ANT FIELD MD Ot I63.9 CEREBRAL INFARCTION, UNSPECIFIED 06/09/2018 ANT FIELD MD Ot R00.1 BRADYCARDIA, UNSPECIFIED 06/09/2018 ANT FIELD MD Ot R07.89 OTHER CHEST PAIN 06/09/2018 ANT FIELD MD Ot I10 ESSENTIAL (PRIMARY) HYPERTENSION 06/09/2018 ANT FIELD MD Ot 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 06/09/2018 ANT FIELD MD Ot I49.5 SICK SINUS SYNDROME 06/09/2018 ANT FIELD MD Ot I63.9 CEREBRAL INFARCTION, UNSPECIFIED 06/09/2018 ANT FIELD MD Ot R00.2 PALPITATIONS 06/09/2018 ANT FIELD MD, Ot Z79.899 OTHER INTERMEDIATE (CURRENT) DRUG THERAPY 06/09/2018 IAIN JONES Ot I10 ESSENTIAL (PRIMARY) HYPERTENSION 06/09/2018 IAIN JONES Ot I16.1 HYPERTENSIVE EMERGENCY 06/09/2018 IAIN JONES Ot 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 06/09/2018 IAIN JONES Ot I63.9 CEREBRAL INFARCTION, UNSPECIFIED 06/09/2018 JOSE ALEJANDRO MCCORD, EDY Florez Ot J32.9 CHRONIC SINUSITIS, UNSPECIFIED 06/09/2018 OSCAR PACK DO Ot R10.13 EPIGASTRIC PAIN 06/09/2018 OSCAR PACK DO, Ot M85.88 OT DISRD OF BONE DENSITY AND STRUCTURE, 06/09/2018 OSCAR PACK DO Ot N95.9 UNSPECIFIED MENOPAUSAL AND PERIMENOPAUSA 06/09/2018 OSCAR PACK DO, Ot Z12.31 ENCNTR SCREEN MAMMOGRAM FOR MALIGNANT NE 06/12/2018 ANT FIELD MD Ot E13.9 OTHER SPECIFIED DIABETES MELLITUS WITHOU 06/12/2018 ANT FIELD MD Ot I10 ESSENTIAL (PRIMARY) HYPERTENSION 06/12/2018 ANT FIELD MD Ot I34.0 NONRHEUMATIC MITRAL (VALVE) INSUFFICIENC 06/12/2018 ANT FIELD MD Ot 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 06/12/2018 ANT FIELD MD Ot I63.9 CEREBRAL INFARCTION, UNSPECIFIED 06/12/2018 ANT FIELD MD Ot R00.1 BRADYCARDIA, UNSPECIFIED 06/12/2018 ANT FIELD MD Ot R07.89 OTHER CHEST PAIN 07/07/2018 OSCAR PACK DO Ot 424.1 AORTIC VALVE DISORDER 07/07/2018 OSCAR PACK DO, Ot Z12.31 ENCNTR SCREEN MAMMOGRAM FOR MALIGNANT NE 07/07/2018 OSCAR PACK DO Ot Z78.0 ASYMPTOMATIC MENOPAUSAL STATE 07/07/2018 ANT FIELD MD Ot I10 ESSENTIAL (PRIMARY) HYPERTENSION 07/07/2018 ANT FIELD MD Ot I63.9 CEREBRAL INFARCTION, UNSPECIFIED 07/07/2018 RASHIDA MCCORD, ANT Rider Ot R00.1 BRADYCARDIA, UNSPECIFIED 07/07/2018 ANT FIELD MD Ot R07.89 OTHER CHEST PAIN 07/07/2018 ANT FIELD MD Ot I10 ESSENTIAL (PRIMARY) HYPERTENSION 07/07/2018 ANT FIELD MD Ot 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 07/07/2018 ANT FIELD MD Ot I49.5 SICK SINUS SYNDROME 07/07/2018 ANT FIELD MD Ot I63.9 CEREBRAL INFARCTION, UNSPECIFIED 07/07/2018 ANT FIELD MD Ot R00.2 PALPITATIONS 07/07/2018 ANT FIELD MD Ot Z79.899 OTHER TENNIS PLAYER (CURRENT) DRUG THERAPY 07/07/2018 IAIN JONES Ot I10 ESSENTIAL (PRIMARY) HYPERTENSION 07/07/2018 IAIN JONES Ot I16.1 HYPERTENSIVE EMERGENCY 07/07/2018 IAIN JONES Ot 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 07/07/2018 IAIN JONES Ot I63.9 CEREBRAL INFARCTION, UNSPECIFIED 07/07/2018 JOSE ALEJANDRO MCCORD, EDY Florez Ot J32.9 CHRONIC SINUSITIS, UNSPECIFIED 07/07/2018 OSCAR PACK DO Ot R10.13 EPIGASTRIC PAIN 07/07/2018 OSCAR PACK DO, Ot M85.88 OTH DISRD OF BONE DENSITY AND STRUCTURE, 07/07/2018 OSCAR PACK DO Ot N95.9 UNSPECIFIED MENOPAUSAL AND PERIMENOPAUSA 07/07/2018 OSCAR PACK DO Ot Z12.31 ENCNTR SCREEN MAMMOGRAM FOR MALIGNANT NE 07/07/2018 ANT FIELD MD Ot E13.9 OTHER SPECIFIED DIABETES MELLITUS WITHOU 07/07/2018 ANT FIELD MD Ot I10 ESSENTIAL (PRIMARY) HYPERTENSION 07/07/2018 ANT FIELD MD Ot I34.0 NONRHEUMATIC MITRAL (VALVE) INSUFFICIENC 07/07/2018 ANT FIELD MD Ot 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 07/07/2018 ANT FIELD MD Ot I63.9 CEREBRAL INFARCTION, UNSPECIFIED 07/07/2018 ANT FIELD MD Ot R00.1 BRADYCARDIA, UNSPECIFIED 07/07/2018 ANT FIELD MD Ot R07.89 OTHER CHEST PAIN 07/08/2018 ANT FIELD MD Ot E13.9 OTHER SPECIFIED DIABETES MELLITUS WITHOU 07/08/2018 ANT FIELD MD Ot I10 ESSENTIAL (PRIMARY) HYPERTENSION 07/08/2018 ANT FIELD MD Ot I34.0 NONRHEUMATIC MITRAL (VALVE) INSUFFICIENC 07/08/2018 ANT FIELD MD Ot 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 07/08/2018 ANT FIELD MD Ot I63.9 CEREBRAL INFARCTION, UNSPECIFIED 07/08/2018 ANT FIELD MD Ot R00.1 BRADYCARDIA, UNSPECIFIED 07/08/2018 ANT FIELD MD Ot R07.89 OTHER CHEST PAIN 07/08/2018 OSCAR PACK DO Ot 424.1 AORTIC VALVE DISORDER 07/08/2018 OSCAR PACK DO Ot Z12.31 ENCNTR SCREEN MAMMOGRAM FOR MALIGNANT NE 07/08/2018 OSCRA PACK DO Ot Z78.0 ASYMPTOMATIC MENOPAUSAL STATE 07/08/2018 ANT FIELD MD Ot I10 ESSENTIAL (PRIMARY) HYPERTENSION 07/08/2018 ANT FIELD MD Ot I63.9 CEREBRAL INFARCTION, UNSPECIFIED 07/08/2018 ANT FIELD MD Ot R00.1 BRADYCARDIA, UNSPECIFIED 07/08/2018 ANT FIELD MD Ot R07.89 OTHER CHEST PAIN 07/08/2018 ANT FIELD MD Ot I10 ESSENTIAL (PRIMARY) HYPERTENSION 07/08/2018 ANT FIELD MD Ot 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 07/08/2018 ANT FIELD MD Ot I49.5 SICK SINUS SYNDROME 07/08/2018 ANT FIELD MD Ot I63.9 CEREBRAL INFARCTION, UNSPECIFIED 07/08/2018 ANT FIELD MD Ot R00.2 PALPITATIONS 07/08/2018 ANT FIELD MD Ot Z79.899 OTHER INTERMEDIATE (CURRENT) DRUG THERAPY 07/08/2018 IAIN JONES Ot I10 ESSENTIAL (PRIMARY) HYPERTENSION 07/08/2018 IAIN JONES Ot I16.1 HYPERTENSIVE EMERGENCY 07/08/2018 IAIN JONES Ot 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 07/08/2018 IAIN JONES Ot I63.9 CEREBRAL INFARCTION, UNSPECIFIED 07/08/2018 JOSE ALEJANDRO MCCORD, EDY Florez Ot J32.9 CHRONIC SINUSITIS, UNSPECIFIED 07/08/2018 OSCAR PACK DO Ot R10.13 EPIGASTRIC PAIN 07/08/2018 OSCAR PACK DO Ot M85.88 OTH DISRD OF BONE DENSITY AND STRUCTURE, 07/08/2018 OSCAR PACK DO Ot N95.9 UNSPECIFIED MENOPAUSAL AND PERIMENOPAUSA 07/08/2018 OSCAR PACK DO Ot Z12.31 ENCNTR SCREEN MAMMOGRAM FOR MALIGNANT NE 07/08/2018 ANT FIELD MD Ot E13.9 OTHER SPECIFIED DIABETES MELLITUS WITHOU 07/08/2018 ANT FIELD MD Ot I10 ESSENTIAL (PRIMARY) HYPERTENSION 07/08/2018 ANT FIELD MD Ot I34.0 NONRHEUMATIC MITRAL (VALVE) INSUFFICIENC 07/08/2018 ANT FIELD MD Ot 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 07/08/2018 ANT FIELD MD Ot I63.9 CEREBRAL INFARCTION, UNSPECIFIED 07/08/2018 ANT FIELD MD Ot R00.1 BRADYCARDIA, UNSPECIFIED 07/08/2018 ANT FIELD MD Ot R07.89 OTHER CHEST PAIN 07/27/2018 ANT FIELD MD Ot E13.9 OTHER SPECIFIED DIABETES MELLITUS WITHOU 07/27/2018 ANT FIELD MD Ot I10 ESSENTIAL (PRIMARY) HYPERTENSION 07/27/2018 ANT FIELD MD Ot I34.0 NONRHEUMATIC MITRAL (VALVE) INSUFFICIENC 07/27/2018 ANT FIELD MD Ot 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 07/27/2018 ANT FIELD MD Ot I63.9 CEREBRAL INFARCTION, UNSPECIFIED 07/27/2018 ANT FIELD MD Ot R00.1 BRADYCARDIA, UNSPECIFIED 07/27/2018 ANT FIELD MD Ot R07.89 OTHER CHEST PAIN 03/24/2019 OSCAR PACK DO Ot 424.1 AORTIC VALVE DISORDER 03/24/2019 OSCAR PACK DO, Ot Z12.31 ENCNTR SCREEN MAMMOGRAM FOR MALIGNANT NE 03/24/2019 OSCAR PACK DO Ot Z78.0 ASYMPTOMATIC MENOPAUSAL STATE 03/24/2019 ANT FIELD MD Ot I10 ESSENTIAL (PRIMARY) HYPERTENSION 03/24/2019 ANT FIELD MD Ot I63.9 CEREBRAL INFARCTION, UNSPECIFIED 03/24/2019 ANT FIELD MD Ot R00.1 BRADYCARDIA, UNSPECIFIED 03/24/2019 ANT FIELD MD Ot R07.89 OTHER CHEST PAIN 03/24/2019 ANT FIELD MD Ot I10 ESSENTIAL (PRIMARY) HYPERTENSION 03/24/2019 ANT FIELD MD Ot 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 03/24/2019 ANT FIELD MD Ot I49.5 SICK SINUS SYNDROME 03/24/2019 ANT FIELD MD Ot I63.9 CEREBRAL INFARCTION, UNSPECIFIED 03/24/2019 ANT FIELD MD Ot R00.2 PALPITATIONS 03/24/2019 ANT FIELD MD Ot Z79.899 OTHER TENNIS PLAYER (CURRENT) DRUG THERAPY 03/24/2019 IAIN JONES Ot I10 ESSENTIAL (PRIMARY) HYPERTENSION 03/24/2019 IAIN JONES Ot I16.1 HYPERTENSIVE EMERGENCY 03/24/2019 IAIN JONES Ot 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 03/24/2019 IAIN JONES Ot I63.9 CEREBRAL INFARCTION, UNSPECIFIED 03/24/2019 JOSE ALEJANDRO MCCORD, EDY Florez Ot J32.9 CHRONIC SINUSITIS, UNSPECIFIED 03/24/2019 OSCAR PACK DO Ot R10.13 EPIGASTRIC PAIN 03/24/2019 OSCAR PACK DO Ot M85.88 OT DISRD OF BONE DENSITY AND STRUCTURE, 03/24/2019 OSCAR PACK DO Ot N95.9 UNSPECIFIED MENOPAUSAL AND PERIMENOPAUSA 03/24/2019 OSCAR PACK DO, Ot Z12.31 ENCNTR SCREEN MAMMOGRAM FOR MALIGNANT NE 03/24/2019 ANT FIELD MD Ot E13.9 OTHER SPECIFIED DIABETES MELLITUS WITHOU 03/24/2019 ANT FIELD MD, Ot I10 ESSENTIAL (PRIMARY) HYPERTENSION 03/24/2019 ANT FIELD MD, Ot I34.0 NONRHEUMATIC MITRAL (VALVE) INSUFFICIENC 03/24/2019 ANT FIELD MD, Ot 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 03/24/2019 ANT FIELD MD, Ot I63.9 CEREBRAL INFARCTION, UNSPECIFIED 03/24/2019 ANT FIELD MD, Ot R00.1 BRADYCARDIA, UNSPECIFIED 03/24/2019 ANT FIELD MD, Ot R07.89 OTHER CHEST PAIN Procedures There is no data. Results Test Result Range Capillary blood glucose measurement by glucometer (mass/volume) - 06/08/16 17:26 Capillary blood glucose measurement by glucometer (mass/volume) 81 mg/dL 70-110 Complete blood count (CBC) with automated white blood cell (WBC) differential - 06/08/16 17:29 Blood leukocytes automated count (number/volume) 7.7 10*3/uL 4.3-11.0 Blood erythrocytes automated count (number/volume) 5.18 10*6/uL 4.35-5.85 Venous blood hemoglobin measurement (mass/volume) 14.8 g/dL 11.5-16.0 Blood hematocrit (volume fraction) 43 % 35-52 Automated erythrocyte mean corpuscular volume 82 [foz_us] 80-99 Automated erythrocyte mean corpuscular hemoglobin (mass per erythrocyte) 29 pg 25-34 Automated erythrocyte mean corpuscular hemoglobin concentration measurement (mass/volume) 35 g/dL 32-36 Automated erythrocyte distribution width ratio 13.4 % 10.0- 14.5 Automated blood platelet count (count/volume) 211 10*3/uL 130-400 Automated blood platelet mean volume measurement 11.4 [foz_us] 7.4-10.4 Automated blood neutrophils/100 leukocytes 50 % 42-75 Automated blood lymphocytes/100 leukocytes 38 % 12-44 Blood monocytes/100 leukocytes 7 % 0-12 Automated blood eosinophils/100 leukocytes 4 % 0-10 Automated blood basophils/100 leukocytes 1 % 0-10 Blood neutrophils automated count (number/volume) 3.8 10*3 1.8-7.8 Blood lymphocytes automated count (number/volume) 2.9 10*3 1.0-4.0 Blood monocytes automated count (number/volume) 0.5 10*3 0.0- 1.0 Automated eosinophil count 0.3 10*3/uL 0.0-0.3 Automated [...] measurement in platelet poor plasma (mass/volume) - 06/08/16 17:29 Fibrin D-dimer FEU measurement in platelet poor plasma (mass/volume) 0.30 ug/mL 0.00-0.49 Comprehensive metabolic panel - 06/08/16 17:29 Serum or plasma sodium measurement (moles/volume) 139 mmol/L 135-145 Serum or plasma potassium measurement (moles/volume) 3.7 mmol/L 3.6-5.0 Serum or plasma chloride measurement (moles/volume) 103 mmol/L 98-107 Carbon dioxide 23 mmol/L 21-32 Serum or plasma anion gap determination (moles/volume) 13 mmol/L 5-14 Serum or plasma urea nitrogen measurement (mass/volume) 17 mg/dL 7-18 Serum or plasma creatinine measurement (mass/volume) 0.76 mg/dL 0.60-1.30 Serum or plasma urea nitrogen/creatinine mass [...] Serum or plasma aspartate aminotransferase measurement (enzymatic activity/volume) 18 U/L 5-34 Serum or plasma alanine aminotransferase measurement (enzymatic activity/volume) 23 U/L 0-55 Serum or plasma protein [...] Urine pH measurement by test strip 5 5-9 Specific gravity of urine by test strip [...] sediment leukocyte count by microscopy (number/high power field) RARE NRG Bacteria detection in urine sediment [...] Serum or plasma cholesterol measurement (mass/volume) 179 mg/dL < 200 Serum or plasma cholesterol in HDL measurement (mass/volume) 43 mg/dL 40-60 Cholesterol in LDL [mass/volume] in serum or plasma by direct assay 120 mg/dL 1-129 Serum or plasma cholesterol in VLDL measurement (mass/volume) 23 mg/dL 5-40 Complete blood count (CBC) with automated white blood cell (WBC) differential - 12/01/16 20:46 Blood leukocytes automated count (number/volume) 6.8 10*3/uL 4.3-11.0 Blood erythrocytes automated count (number/volume) 4.99 10*6/uL 4.35-5.85 Venous blood hemoglobin measurement (mass/volume) 13.9 g/dL 11.5-16.0 Blood hematocrit (volume fraction) 41 % 35-52 Automated erythrocyte mean corpuscular volume 82 [foz_us] 80-99 Automated erythrocyte mean corpuscular hemoglobin (mass per erythrocyte) 28 pg 25-34 Automated erythrocyte mean corpuscular hemoglobin concentration measurement (mass/volume) 34 g/dL 32-36 Automated erythrocyte distribution width ratio 14.2 % 10.0- 14.5 Automated blood platelet count (count/volume) 206 10*3/uL 130-400 Automated blood platelet mean volume measurement 11.6 [foz_us] 7.4-10.4 Automated blood neutrophils/100 leukocytes 41 % 42-75 Automated blood lymphocytes/100 leukocytes 44 % 12-44 Blood monocytes/100 leukocytes 8 % 0-12 Automated blood eosinophils/100 leukocytes 7 % 0-10 Automated blood basophils/100 leukocytes 1 % 0-10 Blood neutrophils automated count (number/volume) 2.8 10*3 1.8-7.8 Blood lymphocytes automated count (number/volume) 3.0 10*3 1.0-4.0 Blood monocytes automated count (number/volume) 0.5 10*3 0.0- 1.0 Automated eosinophil count 0.5 10*3/uL 0.0-0.3 Automated [...] measurement in platelet poor plasma (mass/volume) - 12/01/16 20:46 Fibrin D-dimer FEU measurement in platelet poor plasma (mass/volume) < ug/mL 0.00-0.49 Comprehensive metabolic panel - 12/01/16 20:46 Serum or plasma sodium measurement (moles/volume) 138 mmol/L 135-145 Serum or plasma potassium measurement (moles/volume) 3.9 mmol/L 3.6-5.0 Serum or plasma chloride measurement (moles/volume) 100 mmol/L 98-107 Carbon dioxide 28 mmol/L 21-32 Serum or plasma anion gap determination (moles/volume) 10 mmol/L 5-14 Serum or plasma urea nitrogen measurement (mass/volume) 21 mg/dL 7-18 Serum or plasma creatinine measurement (mass/volume) 0.83 mg/dL 0.60-1.30 Serum or plasma urea nitrogen/creatinine mass [...] Serum or plasma aspartate aminotransferase measurement (enzymatic activity/volume) 18 U/L 5-34 Serum or plasma alanine aminotransferase measurement (enzymatic activity/volume) 26 U/L 0-55 Serum or plasma protein [...] Urine pH measurement by test strip 7 5-9 Specific gravity of urine by test strip [...] sediment leukocyte count by microscopy (number/high power field) RARE NRG Bacteria detection in urine sediment [...] 04:12 Blood leukocytes automated count (number/volume) 6.8 10*3/uL 4.3-11.0 Blood erythrocytes automated count (number/volume) 4.53 10*6/uL 4.35-5.85 Venous blood hemoglobin measurement (mass/volume) 12.5 g/dL 11.5-16.0 Blood hematocrit (volume fraction) 37 % 35-52 Automated erythrocyte mean corpuscular volume 82 [foz_us] 80-99 Automated erythrocyte mean corpuscular hemoglobin (mass per erythrocyte) 28 pg 25-34 Automated erythrocyte mean corpuscular hemoglobin concentration measurement (mass/volume) 34 g/dL 32-36 Automated erythrocyte distribution width ratio 14.1 % 10.0- 14.5 Automated blood platelet count (count/volume) 175 10*3/uL 130-400 Automated blood platelet mean volume measurement 11.8 [foz_us] 7.4-10.4 Automated blood neutrophils/100 leukocytes 47 % 42-75 Automated blood lymphocytes/100 leukocytes 39 % 12-44 Blood monocytes/100 leukocytes 7 % 0-12 Automated blood eosinophils/100 leukocytes 7 % 0-10 Automated blood basophils/100 leukocytes 1 % 0-10 Blood neutrophils automated count (number/volume) 3.2 10*3 1.8-7.8 Blood lymphocytes automated count (number/volume) 2.6 10*3 1.0-4.0 Blood monocytes automated count (number/volume) 0.5 10*3 0.0- 1.0 Automated eosinophil count 0.5 10*3/uL 0.0-0.3 Automated blood basophil count (count/volume) 0.0 10*3/uL 0.0-0.1 Comprehensive metabolic panel - 12/02/16 04:12 Serum or plasma sodium measurement (moles/volume) 139 mmol/L 135-145 Serum or plasma potassium measurement (moles/volume) 3.3 mmol/L 3.6-5.0 Serum or plasma chloride measurement (moles/volume) 104 mmol/L 98-107 Carbon dioxide 26 mmol/L 21-32 Serum or plasma anion gap determination (moles/volume) 9 mmol/L 5-14 Serum or plasma urea nitrogen measurement (mass/volume) 19 mg/dL 7-18 Serum or plasma creatinine measurement (mass/volume) 0.74 mg/dL 0.60-1.30 Serum or plasma urea nitrogen/creatinine mass [...] Serum or plasma aspartate aminotransferase measurement (enzymatic activity/volume) 16 U/L 5-34 Serum or plasma alanine aminotransferase measurement (enzymatic activity/volume) 21 U/L 0-55 Serum or plasma protein measurement (mass/volume) 5.6 g/dL 6.4-8.2 Serum or plasma albumin measurement (mass/volume) 3.4 g/dL 3.2-4.5 Lipid 1996 panel - 12/02/16 04:12 Serum or plasma triglyceride measurement (mass/volume) 95 mg/dL <150 Serum or plasma cholesterol measurement (mass/volume) 160 mg/dL < 200 Serum or plasma cholesterol in HDL measurement (mass/volume) 40 mg/dL 40-60 Cholesterol in LDL [mass/volume] in serum or plasma by direct assay 111 mg/dL 1-129 Serum or plasma cholesterol in VLDL measurement (mass/volume) 19 mg/dL 5-40 Complete blood count (CBC) with automated white blood cell (WBC) differential - 08/24/17 09:20 Blood leukocytes automated count (number/volume) 7.2 10*3/uL 4.3-11.0 Blood erythrocytes automated count (number/volume) 4.58 10*6/uL 4.35-5.85 Venous blood hemoglobin measurement (mass/volume) 13.2 g/dL 11.5-16.0 Blood hematocrit (volume fraction) 39 % 35-52 Automated erythrocyte mean corpuscular volume 85 [foz_us] 80-99 Automated erythrocyte mean corpuscular hemoglobin (mass per erythrocyte) 29 pg 25-34 Automated erythrocyte mean corpuscular hemoglobin concentration measurement (mass/volume) 34 g/dL 32-36 Automated erythrocyte distribution width ratio 13.3 % 10.0- 14.5 Automated blood platelet count (count/volume) 244 10*3/uL 130-400 Automated blood platelet mean volume measurement 12.4 [foz_us] 7.4-10.4 Automated blood neutrophils/100 leukocytes 55 % 42-75 Automated blood lymphocytes/100 leukocytes 31 % 12-44 Blood monocytes/100 leukocytes 7 % 0-12 Automated blood eosinophils/100 leukocytes 6 % 0-10 Automated blood basophils/100 leukocytes 1 % 0-10 Blood neutrophils automated count (number/volume) 3.9 10*3 1.8-7.8 Blood lymphocytes automated count (number/volume) 2.2 10*3 1.0-4.0 Blood monocytes automated count (number/volume) 0.5 10*3 0.0- 1.0 Automated eosinophil count 0.5 10*3/uL 0.0-0.3 Automated blood basophil count (count/volume) 0.1 10*3/uL 0.0-0.1 Comprehensive metabolic panel - 08/24/17 09:20 Serum or plasma sodium measurement (moles/volume) 140 mmol/L 135-145 Serum or plasma potassium measurement (moles/volume) 4.1 mmol/L 3.6-5.0 Serum or plasma chloride measurement (moles/volume) 105 mmol/L 98-107 Carbon dioxide 25 mmol/L 21-32 Serum or plasma anion gap determination (moles/volume) 10 mmol/L 5-14 Serum or plasma urea nitrogen measurement (mass/volume) 15 mg/dL 7-18 Serum or plasma creatinine measurement (mass/volume) 0.74 mg/dL 0.60-1.30 Serum or plasma urea nitrogen/creatinine mass ratio 20 NRG Serum or plasma creatinine measurement with calculation of estimated glomerular filtration rate > NRG Serum or plasma glucose measurement (mass/volume) 127 mg/dL 70-105 Serum or plasma calcium measurement (mass/volume) 10.0 mg/dL 8.5-10.1 Serum or plasma total bilirubin measurement (mass/volume) 0.4 mg/dL 0.1-1.0 Serum or plasma alkaline phosphatase measurement (enzymatic activity/volume) 100 U/L 40-136 Serum or plasma aspartate aminotransferase measurement (enzymatic activity/volume) 18 U/L 5-34 Serum or plasma alanine aminotransferase measurement (enzymatic activity/volume) 20 U/L 0-55 Serum or plasma protein measurement (mass/volume) 7.1 g/dL 6.4-8.2 Serum or plasma albumin measurement (mass/volume) 4.0 g/dL 3.2-4.5 Complete urinalysis with reflex to culture - 08/24/17 11:00 Urine color determination YELLOW NRG Urine clarity determination SLIGHTLY CLOUDY NRG Urine pH measurement by test strip 8 5-9 Specific gravity of urine by test strip 1.010 1.016-1.022 Urine protein assay by test strip, [...] sediment leukocyte count by microscopy (number/high power field) NONE NRG Bacteria detection in urine sediment by light microscopy MODERATE NRG Squamous epithelial cells detection in urine sediment by light microscopy RARE NRG Crystals detection in urine sediment by light microscopy PRESENT NRG Casts detection in urine sediment by light microscopy NONE NRG Mucus detection in urine sediment by light microscopy NEGATIVE NRG Complete urinalysis with reflex to culture NO NRG Amorphous sediment detection in urine sediment by light microscopy LARGE LIV PHOSPHATE NRG Methicillin resistant Staphylococcus aureus (MRSA) screening culture - 08/28/17 14:30 Methicillin resistant Staphylococcus aureus (MRSA) screening culture NEG NRG Capillary blood glucose measurement by glucometer (mass/volume) - 09/04/17 10:16 Capillary blood glucose measurement by glucometer (mass/volume) 134 mg/dL 70-110 Complete blood count (CBC) with automated white blood cell (WBC) differential - 04/24/18 21:00 Blood leukocytes automated count (number/volume) 7.7 10*3/uL 4.3-11.0 Blood erythrocytes automated count (number/volume) 4.58 10*6/uL 4.35-5.85 Venous blood hemoglobin measurement (mass/volume) 12.9 g/dL 11.5-16.0 Blood hematocrit (volume fraction) 38 % 35-52 Automated erythrocyte mean corpuscular volume 83 [foz_us] 80-99 Automated erythrocyte mean corpuscular hemoglobin (mass per erythrocyte) 28 pg 25-34 Automated erythrocyte mean corpuscular hemoglobin concentration measurement (mass/volume) 34 g/dL 32-36 Automated erythrocyte distribution width ratio 13.7 % 10.0- 14.5 Automated blood platelet count (count/volume) 220 10*3/uL 130-400 Automated blood platelet mean volume measurement 10.9 [foz_us] 7.4-10.4 Automated blood neutrophils/100 leukocytes 61 % 42-75 Automated blood lymphocytes/100 leukocytes 25 % 12-44 Blood monocytes/100 leukocytes 6 % 0-12 Automated blood eosinophils/100 leukocytes 6 % 0-10 Automated blood basophils/100 leukocytes 1 % 0-10 Blood neutrophils automated count (number/volume) 4.7 10*3 1.8-7.8 Blood lymphocytes automated count (number/volume) 1.9 10*3 1.0-4.0 Blood monocytes automated count (number/volume) 0.5 10*3 0.0- 1.0 Automated eosinophil count 0.5 10*3/uL 0.0-0.3 Automated blood basophil count (count/volume) 0.1 10*3/uL 0.0-0.1 PT panel in platelet poor plasma by coagulation assay - 04/24/18 21:00 Prothrombin time (PT) in platelet poor plasma by coagulation assay 12.8 s 12.2-14.7 INR in platelet poor plasma or blood by coagulation assay 1.0 0.8-1.4 Activated partial thromboplastin time (aPTT) in platelet poor plasma bycoagulation assay - 04/24/18 21:00 Activated partial thromboplastin time (aPTT) in platelet poor plasma bycoagulation assay 29 s 24-35 Comprehensive metabolic panel - 04/24/18 21:00 Serum or plasma sodium measurement (moles/volume) 137 mmol/L 135-145 Serum or plasma potassium measurement (moles/volume) 4.2 mmol/L 3.6-5.0 Serum or plasma chloride measurement (moles/volume) 102 mmol/L 98-107 Carbon dioxide 26 mmol/L 21-32 Serum or plasma anion gap determination (moles/volume) 9 mmol/L 5-14 Serum or plasma urea nitrogen measurement (mass/volume) 14 mg/dL 7-18 Serum or plasma creatinine measurement (mass/volume) 0.77 mg/dL 0.60-1.30 Serum or plasma urea nitrogen/creatinine mass ratio 18 NRG Serum or plasma creatinine measurement with calculation of estimated glomerular filtration rate > NRG Serum or plasma glucose measurement (mass/volume) 111 mg/dL 70-105 Serum or plasma calcium measurement (mass/volume) 9.9 mg/dL 8.5-10.1 Serum or plasma total bilirubin measurement (mass/volume) 0.4 mg/dL 0.1-1.0 Serum or plasma alkaline phosphatase measurement (enzymatic activity/volume) 89 U/L 40-136 Serum or plasma aspartate aminotransferase measurement (enzymatic activity/volume) 26 U/L 5-34 Serum or plasma alanine aminotransferase measurement (enzymatic activity/volume) 21 U/L 0-55 Serum or plasma protein measurement (mass/volume) 6.9 g/dL 6.4-8.2 Serum or plasma albumin measurement (mass/volume) 4.1 g/dL 3.2-4.5 Magnesium - 04/24/18 21:00 Magnesium 1.9 mg/dL 1.8-2.4 Serum or plasma troponin i.cardiac measurement (mass/volume) - 04/24/18 21:00 Serum or plasma troponin i.cardiac measurement (mass/volume) < ng/mL <0.30 Myoglobin, serum - 04/24/18 21:00 Myoglobin, serum 31.2 ng/mL 10.0-92.0 Encounters ACCT No. Visit Date/Time Discharge Status Pt. Type Provider Facility Loc./Unit Complaint [id number] 12/25/2012 10:56:30 [facility] 05/04/2015 10:35:27 ACT Document Registration [id number] 06/11/2018 12:42:00 06/11/2018 23:59:59 CLS Outpatient ANT FIELD MD [facility] CARD CVA, CHEST PAIN, MR [id number] 04/24/2018 20:43:00 04/24/2018 23:03:00 DIS Emergency JOSIAS MOMIN [facility] ER PRESSURE IN CHEST [id number] 04/16/2018 10:00:00 04/16/2018 23:59:59 CLS Outpatient OSCAR PACK DO [facility] RAD SCREEN,MENOPAUSE [id number] 02/20/2018 08:28:00 02/20/2018 23:59:59 CLS Preadmit OSCAR PACK DO [facility] RAD SCREEN,MENOPAUSE [id number] 09/04/2017 09:54:00 09/04/2017 16:20:00 DIS Outpatient MERNA DURAN DO [facility] SDC CHOLELITHIASIS [id number] 08/28/2017 14:08:00 08/28/2017 14:38:00 DIS Outpatient MERNA DURAN DO [facility] PREOP CHOLELITHIASIS [id number] 08/24/2017 08:50:00 08/24/2017 12:19:00 DIS Emergency KELBY GRUBER MD [facility] ER LOWER BACK PAIN R SIDE [id number] 08/21/2017 09:08:00 08/21/2017 23:59:59 CLS Outpatient OSCAR PACK DO [facility] RAD R10.13 [id number] 05/15/2017 11:33:00 05/15/2017 23:59:59 CLS Preadmit OSCAR PACK DO [facility] RAD SCREEN Z12.31 [id number] 01/15/2017 12:26:00 01/15/2017 23:59:59 CLS Outpatient EDY BLOUNT MD [facility] RAD CHRONIC SINUSITIS [id number] 12/19/2016 11:47:00 12/19/2016 23:59:59 CLS Outpatient IAIN JONES [facility] CARD CVA,HTN,LAFB [id number] 12/18/2016 08:35:00 12/18/2016 23:59:59 CLS Outpatient ANT FIELD MD [facility] CATH CVA,PALPITATIONS [id number] 12/04/2016 12:29:00 12/04/2016 23:59:59 CLS Outpatient ANT FIELD MD [facility] CARD CHEST PAIN,ESSENTIAL HTN, CVA,BRADYCARDIA [id number] 12/01/2016 22:00:00 12/02/2016 14:10:00 DIS Inpatient ASCENCION KIRKPATRICK MD [facility] ICU HYPERTENSIVE URGENCY, CHEST PAIN VARIENT [id number] 08/15/2016 11:20:00 08/29/2016 10:43:00 DIS Outpatient OSCAR PACK DO [facility] REHAB CVA [id number] 07/18/2016 12:57:00 07/19/2016 17:00:00 DIS Outpatient OSCAR PACK DO [facility] REHAB CVA [id number] 06/08/2016 19:52:00 06/09/2016 09:51:00 DIS Inpatient ASCENCION KIRKPATRICK MD [facility] ICU LEFT HAND WEAKNESS AND ATAXIA [id number] 04/25/2016 09:01:00 04/25/2016 23:59:59 CLS Outpatient OSCAR PACK DO [facility] RAD MENOPAUSE,SCREENING [id number] 05/04/2015 10:35:00 05/04/2015 23:59:59 CLS Outpatient OSCAR PACK DO Via [facility] CARD AORTIC STENOSIS [id number] 08/29/2011 09:51:00 Document Registration [id number] 04/16/2011 07:54:00 Document Registration [id number] 04/04/2011 06:37:00 Document Registration
--- NOTE | 2019-05-14 14:58 | ED Lower Extremity ---
General Chief Complaint: Lower Extremity Stated Complaint: LEFT LEG PAIN/SWELLING Nursing Triage Note: PT TO ROOM 4 WITH CO LEFT CALF SWELLING AND PAIN. PAIN STARTED AFTER WALKING DOWN SOME STAIRS. Nursing Sepsis Screen: No Definite Risk History of Present Illness Date Seen by Provider: May 14, 2019 Time Seen by Provider: 13:50 Initial Comments 74-year-old female presents for left calf and ankle swelling. She takes Eliquis daily for atrial fibrillation. She does report she has been sitting more than normal. She reports walking down some stairs approximately 3 days ago and having an acute cramp in the left calf, since then she's been having pain. He denies twisting her ankle or any ankle/foot pain. No history of DVTs. Onset: other (3 days) Pain/Injury Location: left leg Method of Injury: unknown Allergies and Home Medications Allergies Coded Allergies: Sulfa (Sulfonamide Antibiotics) (Verified Allergy, Mild, RASH, 08/28/17) Home Medications Albuterol Sulfate 8.5 Gm Hfa.aer.ad, 2 PUFF INH Q4H PRN for SHORTNESS OF BREATH, (Reported) Alprazolam 0.25 Mg Tablet, 0.25 MG PO Q8H Prescribed by: JOSIAS MOMIN on 04/24/18 1627 Amlodipine Besylate 10 Mg Tablet, 10 MG PO DAILY, (Reported) Aspirin 325 Mg Tablet.dr, 325 MG PO DAILY, (Reported) Carvedilol 6.25 Mg Tablet, 3.125 MG PO DAILY, (Reported) TAKES 1/2 (6.25MG) TABLET Fluticasone Propionate 9.9 Ml [place].susp, 2 SPRAYS NS DAILY PRN for ALLERGIES, (Reported) Glimepiride 1 Mg Tablet, 1 MG PO DAILY, (Reported) Hydrocodone Bit/Acetaminophen 1 Each Tablet, 1 TAB PO Q6H PRN Prescribed by: MERNA DURAN on 09/04/17 1330 Lisinopril 10 Mg Tablet, 10 MG PO DAILY@0900 Prescribed by: ANT FIELD on 12/02/16 1248 Metformin HCl 1,000 Mg Tablet, 1,000 MG PO BID, (Reported) Pravastatin Sodium 40 Mg Tablet, 40 MG PO DAILY, (Reported) Triamterene/Hydrochlorothiazid 1 Each Capsule, 1 CAP PO DAILY, (Reported) Patient Home Medication List Home Medication List Reviewed: Yes Review of Systems Constitutional: no symptoms reported, see HPI Musculoskeletal: see HPI, muscle pain (left gastroc) All Other Systems Reviewed Negative Unless Noted: Yes Past Hhzcwoz-Vbdjjs-Bzusxp Hx Past Med/Social Hx: Reviewed Nursing Past Med/Soc Hx Patient Social History Alcohol Use: Denies Use Recreational Drug Use: No Smoking Status: Never a Smoker 2nd Hand Smoke Exposure: No Recent Foreign Travel: No Contact w/Someone Who Travel: No Recent Infectious Disease Expo: No Recent Hopitalizations: No Physical Abuse: No Sexual Abuse: No Mistreated: No Fear: No Immunizations Up To Date Tetanus Booster (TDap): Unknown Date of Pneumonia Vaccine: Jul 20, 2015 Date of Influenza Vaccine: Aug 04, 2017 Seasonal Allergies Seasonal Allergies: No Past Medical History Surgeries: Yes (IMPLANTED HEART MONITOR) Gallbladder, Hysterectomy Respiratory: Yes (USED INHALER IN LAST 3 MONTHS) Asthma Currently Using CPAP: No Currently Using BIPAP: No Cardiac: Yes (Heart Cath ("clean")) Atrial Fibrillation, High Cholesterol, Hypertension Neurological: Yes Stroke : No 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 Sexually Transmitted Disease: No HIV/AIDS: No Genitourinary: No Gastrointestinal: No Gastroesophageal Reflux, Diverticulosis, Gall Bladder Disease Musculoskeletal: No Arthritis Endocrine: Yes Diabetes, Non-Insulin dep Cataract Loss of Vision: Denies Hearing Impairment: Denies Cancer: No Psychosocial: Yes (HX ) Anxiety Integumentary: No Blood Disorders: No Adverse Reaction/Blood Tranf: No (N/A) Family Medical History Cerebral hemorrhage 19 FATHER Diabetes mellitus 19 MOTHER FH: breast cancer 19 MOTHER FH: ovarian cancer 19 MOTHER Hypertension 19 FATHER 19 MOTHER No Pertinent Family Hx Physical Exam Vital Signs Vital Signs - First Documented 05/14/19 13:39 Temp 96.5 Pulse 52 Resp 16 B/P (MAP) 150/80 (103) Pulse Ox 100 O2 Delivery Room Air Capillary Refill : Less Than 3 Seconds Height, Weight, BMI Height: 5'2.00" Weight: 197lbs. 1.0oz. 89.796974ju; 37.1 BMI Method:Stated General Appearance: WD/WN, no apparent distress Neck: non-tender, full range of motion, supple, normal inspection Cardiovascular: normal peripheral pulses, regular rate, rhythm Respiratory: chest non-tender, lungs clear, normal breath sounds Gastrointestinal: normal bowel sounds, non tender, soft Ankles: bilateral ankle non-tender, bilateral ankle normal inspection, bilateral ankle normal range of motion, bilateral ankle other (pedal pulses 2+ and symmetric) Feet: bilateral foot non-tender, bilateral foot normal inspection, bilateral foot normal range of motion, bilateral foot no evidence of injury Neurologic/Tendon: normal sensation, normal motor functions, normal tendon functions Neurologic/Psychiatric: no motor/sensory deficits, alert, normal mood/affect, oriented x 3 Skin: normal color, warm/dry Positive jackie's left LE. Cap refill left foot < 2 sec. Progress/Results/Core Measures Results/Orders My Orders Orders - JOSIAS MOMIN Us Venous Lower Ext Lt (05/14/19 14:30) Vital Signs/I&O 05/14/19 13:39 Temp 96.5 Pulse 52 Resp 16 B/P (MAP) 150/80 (103) Pulse Ox 100 O2 Delivery Room Air Blood Pressure Mean: 103 Diagnostic Imaging Diagonstic Imaging: Ultrasound Plain Films/CT/US/NM/MRI: leg Comments NAME: [facility] REC#: [id number] PT STATUS: REG ER : 1945 PHYSICIAN: JOSIAS MOMIN ADMIT DATE: 05/14/19/ER Draft Date of Exam:05/14/19 US VENOUS LOWER EXT LT CLINICAL INDICATION: Patient with left leg pain and swelling. COMPARISON: None. PROCEDURE: Real-time left lower extremity venous Doppler duplex evaluation is performed from the inguinal region through the popliteal fossa. The calf venous structures are also evaluated. FINDINGS: The deep venous system is well visualized and is easily compressible. There is no evidence of deep venous thrombosis, valvular incompetence, or significant collateral circulation. IMPRESSION: There is no ultrasound Doppler evidence of deep venous thrombosis in the left lower extremity. Dictated on workstation # [id number] Dict: 05/14/19 1454 Trans: 05/14/19 1459 [facility] [id number] Interpreted by: PAULETTE MARTIN MD Electronically signed by: Departure Impression Primary Impression: Gastrocnemius strain, left Qualified Codes: S86.112A - Strain of other muscle(s) and tendon(s) of posterior muscle group at lower leg level, left leg, initial encounter Disposition: 01 HOME, SELF-CARE Condition: Improved Departure-Patient Inst. Decision time for Depature: 14:50 Referrals: OSCAR PACK DO (PCP/Family) Primary Care Physician Patient Instructions: Muscle Strain (DC) Add. Discharge Instructions: You may alternate heat and ice to the left calf. Gentle range of motion to the left ankle and foot every 2 hours while awake. If sitting for more than one hour, wiggle your toes and move your ankle. You may alternate between ibuprofen 600 mg and Tylenol 650 mg every 4 hours for pain. Elevate the left lower extremity. You may wear support hose to help with swelling. Venancio wrap to left calf. Follow-up with your primary care provider in 2-3 days if symptoms are not improving or worsen. Return to the emergency department for new, urgent health care needs. All discharge instructions reviewed with patient and/or family. Voiced understanding. Copy Copies To 1: OSCAR PACK AMY ARNP May 14, 2019 14:58
[2019-05-14 15:23] VITALS: BP 129/56
== END 2019-05-14 15:23 | disposition home or self-care (01) ==
LOC: EDUNIT# 13:11 → ER 13:14
DX: S86.112A Strain of other muscle(s) and tendon(s) of posterior muscle group at lower leg level, left leg, initial encounter (principal); I48.91 Unspecified atrial fibrillation; J45.909 Unspecified asthma, uncomplicated; I10 Essential (primary) hypertension; E78.00 Pure hypercholesterolemia, unspecified; K21.9 Gastro-esophageal reflux disease without esophagitis; E11.9 Type 2 diabetes mellitus without complications; F41.9 Anxiety disorder, unspecified; Z87.19 Personal history of other diseases of the digestive system; Z86.73 Personal history of transient ischemic attack (TIA), and cerebral infarction without residual deficits; Z79.82 Long term (current) use of aspirin; Z88.2 Allergy status to sulfonamides; Z79.84 Long term (current) use of oral hypoglycemic drugs; Z79.51 Long term (current) use of inhaled steroids; Z79.01 Long term (current) use of anticoagulants; Z90.710 Acquired absence of both cervix and uterus; Z80.3 Family history of malignant neoplasm of breast; Z80.8 Family history of malignant neoplasm of other organs or systems; Z82.49 Family history of ischemic heart disease and other diseases of the circulatory system; X50.1XXA Overexertion from prolonged static or awkward postures, initial encounter; Y93.01 Activity, walking, marching and hiking

== ENCOUNTER → 2021-01-17 | Outpatient (CLI) | payer MEDICARE, OTHER ==
[~2021-01-17] MED LIST changes: +AMLO-250 PO; +AMLO-251 PO; -AMLO10TA7 PO; -AMLO5TAB9 PO; -GLIM1TAB PO; +GLIM1TAB4 PO; -LISI10TA2 PO; +LISI10TA25 PO
== END ==
LOC: CARD 13:43
PROVIDERS: ATTEND Physician Assistant
DX: I11.9 Hypertensive heart disease without heart failure (principal); I34.0 Nonrheumatic mitral (valve) insufficiency
CPT/HCPCS: 93306

== ENCOUNTER → 2021-02-21 | Outpatient (CLI) | payer MEDICARE, OTHER ==
[~2021-02-21] VITALS: Ht 157 cm; Wt 90.0 kg
[~2021-02-21] MED LIST changes: +CATHETER FLUSH 10 ML SYR IV PRN; +REGADENOSON 0.4 MG/5 ML SYR (LEXISCAN) IV ONE
[2021-02-21 07:13] LABS: ALANINE AMINOTRANSFERASE 23 U/L (0-55); ALBUMIN 3.7 GM/DL (3.2-4.5); ALKALINE PHOSPHATASE 81 U/L (40-136); BILIRUBIN,TOTAL 0.5 MG/DL (0.1-1.0); BUN/CREATININE RATIO 18; CALCIUM 9.1 MG/DL (8.5-10.1); CARBON DIOXIDE 25 MMOL/L (21-32); CHLORIDE 107 MMOL/L (98-107); CHOLESTEROL 140 MG/DL (< 200); CREATININE SERUM 0.77 MG/DL (0.60-1.30); GFR ESTIMATED > 60; GLUCOSE 137 MG/DL (70-105); HDL CHOLESTEROL 47 MG/DL (40-60); POTASSIUM 3.8 MMOL/L (3.6-5.0); SODIUM 141 MMOL/L (135-145); TRIGLYCERIDES 93 MG/DL (<150); VLDL CHOLESTEROL 19 MG/DL (5-40)
[2021-02-21 08:57] VITALS: BP 125/56
--- NOTE | 2021-02-21 14:48 | Cardiology Stress Test Report ---
Stress Test Report Date of Procedure/Referring: Date of Procedure: February 21, 2021 Lillie Hunter Admitting Physician Uziel Judge DO Indications: CP Baseline Heart Rate: 48 Baseline Blood Pressure: Blood Pressure Systolic: 125 Blood Pressure Diastolic: 56 Baseline Vitals Vital Signs Date Time Temp Pulse Resp B/P (MAP) Pulse Ox O2 Delivery O2 Flow Rate FiO2 02/21/21 08:57 48 18 125/56 (79) 98 Room Air Baseline EKG: Baseline EKG: Sinus bradycardia Summary After explaining the procedure to the patient, she signed a consent and then brought to the stress nuclear laboratory. Patient received 0.4 mg Lexiscan for stress test, ECG, heart rate and blood pressure were monitored continuously. Resting and stress dose of radio tracer were injected, imaging was acquired and reviewed in short axis, horizontal long axis and vertical long axis views. TID: 1.15 SSS: 0 SDS: 0 EF: 65 1. Patient tolerated Lexiscan well 2. Baseline sinus bradycardia persisted during test 3. No significant ischemia or infarction on SPECT images 4. Normal left ventricular size, EF 65% ANT FIELD MD February 21, 2021 14:48
== END ==
LOC: CARD 07:30
PROVIDERS: ATTEND Physician Assistant
DX: R07.9 Chest pain, unspecified (principal); I10 Essential (primary) hypertension; E78.2 Mixed hyperlipidemia
CPT/HCPCS: 78452; 80053; 80061; 93017; A9502; 36415